=== PATIENT | female | born 1965 | race Caucasian/White ===

== ENCOUNTER 2019-08-29 13:18 | Emergency (ER) | payer MEDICAID ==
[~2019-08-29] VITALS: Ht 167.6 cm; Wt 100.4 kg
[2019-08-29 13:49] LABS: CLARITY,URINE CLEAR (Clear); COLOR,URINE YELLOW (Yellow); GLUCOSE, URINE 250 mg/dl (Neg); KETONES,URINE NEGATIVE (Neg); LEUKOCYTE ESTERASE ,URINE NEGATIVE (Neg); NITRITES, URINE NEGATIVE (Neg); OCCULT BLOOD,URINE MODERATE (Neg); PROTEIN,URINE >=300 mg/dl (Neg); UROBILINOGEN,URINE 0.2 E.U/dL (0.2-1.0)
[2019-08-29 13:50] LABS: URINE HCG NEGATIVE (NEG)
[2019-08-29 13:57] LABS: UA COLLECTION TYPE CLN CATCH MIDSTREAM
[2019-08-29 14:00] LABS: SQUAMOUS EPITHELIAL CELL,UR MANY /LPF (FEW)
[2019-08-29 14:01] LABS: BACTERIA,URINE 2+ /HPF (Neg); FINE GRANULAR CAST 0-3 /LPF (NEGATIVE); HYALINE CASTS 0-3 /LPF (NEGATIVE); RBC,URINE 0-2 /HPF (0-2)
[2019-08-29 14:03] LABS: WBC,URINE 0-4 /HPF (0-4)
--- NOTE | 2019-08-29 15:11 | NUR ---
pt ambulated independently to the toilet
[2019-08-29 15:13] LABS: BASOPHILS # (AUTO) 0.1 X10'3 (0-0.2); EOSINOPHILS # (AUTO) 0.3 X10'3 (0-0.9); HEMATOCRIT 35.1 % (35.0-45.0); HEMOGLOBIN 11.8 g/dl (12.0-16.0); LYMPHOCYTES # (AUTO) 1.4 X10'3 (1.1-4.8); LYMPHOCYTES % (AUTO) 16.7 % (21-51); MEAN CORPUSCULAR HEMOGLOBIN 31.9 PG (27.0-31.0); MEAN CORPUSCULAR HGB CONC 33.5 g/dL (33.0-36.5); MEAN CORPUSCULAR VOLUME 95.2 FL (78-98); MEAN PLATELET VOLUME 7.3 FL (7.4-10.4); MONOCYTES # (AUTO) 0.5 X10'3 (0-0.9); MONOCYTES % (AUTO) 5.3 % (2-12); NEUTROPHILS # (AUTO) 6.4 X10'3 (1.8-7.7); PLATELET COUNT 253 X10'3 (140-440); RED BLOOD COUNT 3.69 X10'6 (4.20-5.60); RED CELL DISTRIBUTION WIDTH 14.1 % (11.5-14.5); WHITE BLOOD COUNT 8.6 X10'3 (4.5-11.0)
[2019-08-29 15:29] LABS: ALANINE AMINOTRANSFERASE 16 U/L (12-78); ALBUMIN 2.2 G/DL (3.4-5.0); ALBUMIN/GLOBULIN RATIO 0.5 (1.1-1.5); ALKALINE PHOSPHATASE 70 IU/L (46-116); ANION GAP 5 (8-16); ASPARTATE AMINO TRANSFERASE 17 U/L (10-37); BILIRUBIN,TOTAL 0.2 MG/DL (0.1-1.0); BLOOD UREA NITROGEN 26 MG/DL (7-18); BUN/CREATININE RATIO 6.9 (6.6-38.0); CALCIUM 8.2 MG/DL (8.5-10.1); CHLORIDE 111 MMOL/L (99-107); CREATININE 3.78 MG/DL (0.40-0.90); GLUCOSE 178 MG/DL (70-104); LIPASE 135 U/L (73-393); POTASSIUM 4.6 MMOL/L (3.5-5.1); SODIUM 139 MMOL/L (135-145); TOTAL CARBON DIOXIDE 23.2 MMOL/L (24-32); TOTAL PROTEIN 6.3 G/DL (6.4-8.2); eGFR 13 ML/MIN
[2019-08-29] MEDS ORDERED: HYDROcodone/acetaminophen 10/325mg tab PO ONE (15:40)
[2019-08-29 16:19] VITALS: BP 152/87
== END 2019-08-29 16:16 | disposition home or self-care (01) ==
LOC: ER 13:18
DX: I12.9 Hypertensive chronic kidney disease with stage 1 through stage 4 chronic kidney disease, or unspecified chronic kidney disease (principal); E11.22 Type 2 diabetes mellitus with diabetic chronic kidney disease; N18.9 Chronic kidney disease, unspecified; E78.00 Pure hypercholesterolemia, unspecified; F17.200 Nicotine dependence, unspecified, uncomplicated
CPT/HCPCS: 36415; 80053; 81001; 81025; 82948; 83690; 85025; 99283

== ENCOUNTER 2020-03-14 12:50 | Emergency (ER) | payer MEDICAID ==
[~2020-03-14] VITALS: Ht 167.6 cm; Wt 104.5 kg
[2020-03-14 14:09] LABS: BASOPHILS # (AUTO) 0.1 X10'3 (0-0.2); BASOPHILS % (AUTO) 0.9 % (0-1); EOSINOPHILS # (AUTO) 0.3 X10'3 (0-0.9); EOSINOPHILS % (AUTO) 3.1 % (0-6); LYMPHOCYTES # (AUTO) 1.2 X10'3 (1.1-4.8); LYMPHOCYTES % (AUTO) 11.7 % (21-51); MEAN CORPUSCULAR HEMOGLOBIN 31.4 PG (27.0-31.0); MEAN CORPUSCULAR HGB CONC 33.2 g/dL (33.0-36.5); MEAN CORPUSCULAR VOLUME 94.4 FL (78-98); MEAN PLATELET VOLUME 7.4 FL (7.4-10.4); MONOCYTES # (AUTO) 0.5 X10'3 (0-0.9); MONOCYTES % (AUTO) 4.9 % (2-12); NEUTROPHILS # (AUTO) 8.3 X10'3 (1.8-7.7); NEUTROPHILS % (AUTO) 79.4 % (42-75); PLATELET COUNT 267 X10'3 (140-440); RED BLOOD COUNT 3.49 X10'6 (4.20-5.60); RED CELL DISTRIBUTION WIDTH 13.8 % (11.5-14.5); WHITE BLOOD COUNT 10.5 X10'3 (4.5-11.0)
[2020-03-14 14:19] LABS: URINE HCG NEGATIVE (NEG)
[2020-03-14 14:22] LABS: CLARITY,URINE CLOUDY (Clear); COLOR,URINE YELLOW (Yellow); GLUCOSE, URINE 500 mg/dl (Neg); KETONES,URINE NEGATIVE (Neg); LEUKOCYTE ESTERASE ,URINE NEGATIVE (Neg); NITRITES, URINE NEGATIVE (Neg); OCCULT BLOOD,URINE MODERATE (Neg); PH,URINE 6.5 (4.8-8.0); PROTEIN,URINE >=300 mg/dl (Neg); UA COLLECTION TYPE CLN CATCH MIDSTREAM; UROBILINOGEN,URINE 0.2 E.U/dL (0.2-1.0)
[2020-03-14 14:24] LABS: ALANINE AMINOTRANSFERASE 17 U/L (12-78); ALBUMIN 2.3 G/DL (3.4-5.0); ALBUMIN/GLOBULIN RATIO 0.5 (1.1-1.5); ALKALINE PHOSPHATASE 94 IU/L (46-116); ANION GAP 10 (8-16); ASPARTATE AMINO TRANSFERASE 12 U/L (10-37); BILIRUBIN,TOTAL 0.2 MG/DL (0.1-1.0); BLOOD UREA NITROGEN 35 MG/DL (7-18); BUN/CREATININE RATIO 6.9 (6.6-38.0); CALCIUM 8.2 MG/DL (8.5-10.1); CHLORIDE 108 MMOL/L (99-107); CREATININE 5.05 MG/DL (0.40-0.90); GLUCOSE 218 MG/DL (70-104); LIPASE 142 U/L (73-393); POTASSIUM 4.8 MMOL/L (3.5-5.1); SODIUM 141 MMOL/L (135-145); TOTAL CARBON DIOXIDE 23.5 MMOL/L (24-32); TOTAL PROTEIN 6.8 G/DL (6.4-8.2); eGFR 9 ML/MIN
[2020-03-14 14:28] LABS: SQUAMOUS EPITHELIAL CELL,UR MANY /LPF (FEW)
[2020-03-14 14:30] LABS: BACTERIA,URINE 4+ /HPF (Neg); CELLULAR CAST 0-4 /LPF (NEGATIVE); COARSE GRANULAR CAST 0-3 /LPF (NEGATIVE); FINE GRANULAR CAST 0-3 /LPF (NEGATIVE); HYALINE CASTS 0-3 /LPF (NEGATIVE); RBC,URINE 0-2 /HPF (0-2); TRANSITIONAL EPI CELLS,URINE FEW /HPF; WBC,URINE 0-4 /HPF (0-4)
[2020-03-14 17:18] VITALS: BP 159/99
== END 2020-03-14 18:12 | disposition home or self-care (01) ==
LOC: ER 12:51
DX: I12.9 Hypertensive chronic kidney disease with stage 1 through stage 4 chronic kidney disease, or unspecified chronic kidney disease (principal); E11.22 Type 2 diabetes mellitus with diabetic chronic kidney disease; N18.9 Chronic kidney disease, unspecified; M54.5 Low back pain; M79.89 Other specified soft tissue disorders; E78.00 Pure hypercholesterolemia, unspecified; F17.200 Nicotine dependence, unspecified, uncomplicated
CPT/HCPCS: 36415; 80053; 81001; 81025; 83690; 85025; 93971; 99284

== ENCOUNTER 2020-05-02 12:19 | Emergency (ER) | payer MEDICAID ==
[~2020-05-02] VITALS: Ht 172.7 cm; Wt 99.0 kg
[2020-05-02 13:20] LABS: CLARITY,URINE CLOUDY (Clear); COLOR,URINE YELLOW (Yellow); GLUCOSE, URINE 100 mg/dl (Neg); KETONES,URINE NEGATIVE (Neg); LEUKOCYTE ESTERASE ,URINE NEGATIVE (Neg); NITRITES, URINE NEGATIVE (Neg); OCCULT BLOOD,URINE SMALL (Neg); PH,URINE 6.5 (4.8-8.0); PROTEIN,URINE >=300 mg/dl (Neg); UA COLLECTION TYPE CLN CATCH MIDSTREAM; UROBILINOGEN,URINE 0.2 E.U/dL (0.2-1.0)
[2020-05-02 13:27] LABS: SQUAMOUS EPITHELIAL CELL,UR MANY /LPF (FEW)
[2020-05-02 13:34] LABS: WBC,URINE 0-4 /HPF (0-4)
[2020-05-02 13:35] LABS: BACTERIA,URINE 2+ /HPF (Neg); COARSE GRANULAR CAST 0-3 /LPF (NEGATIVE); FINE GRANULAR CAST 0-3 /LPF (NEGATIVE); HYALINE CASTS 0-3 /LPF (NEGATIVE)
[2020-05-02 14:21] LABS: BASOPHILS # (AUTO) 0.1 X10'3 (0-0.2); BASOPHILS % (AUTO) 0.9 % (0-1); EOSINOPHILS # (AUTO) 0.4 X10'3 (0-0.9); EOSINOPHILS % (AUTO) 4.3 % (0-6); HEMOGLOBIN 10.2 g/dl (12.0-16.0); LYMPHOCYTES % (AUTO) 22.1 % (21-51); MEAN CORPUSCULAR HGB CONC 32.8 g/dL (33.0-36.5); MEAN CORPUSCULAR VOLUME 94.4 FL (78-98); MEAN PLATELET VOLUME 7.5 FL (7.4-10.4); MONOCYTES # (AUTO) 0.6 X10'3 (0-0.9); MONOCYTES % (AUTO) 6.6 % (2-12); NEUTROPHILS # (AUTO) 5.9 X10'3 (1.8-7.7); NEUTROPHILS % (AUTO) 66.1 % (42-75); PLATELET COUNT 278 X10'3 (140-440); RED BLOOD COUNT 3.29 X10'6 (4.20-5.60); RED CELL DISTRIBUTION WIDTH 13.7 % (11.5-14.5); WHITE BLOOD COUNT 8.9 X10'3 (4.5-11.0)
[2020-05-02 14:34] LABS: GLUCOSE 118 MG/DL (70-104); POTASSIUM 5.9 MMOL/L (3.5-5.1); SODIUM 140 MMOL/L (135-145)
[2020-05-02 14:35] LABS: ALANINE AMINOTRANSFERASE 26 U/L (12-78); ALBUMIN/GLOBULIN RATIO 0.4 (1.1-1.5); ALKALINE PHOSPHATASE 99 IU/L (46-116); ANION GAP 9 (8-16); ASPARTATE AMINO TRANSFERASE 26 U/L (10-37); BILIRUBIN,TOTAL 0.2 MG/DL (0.1-1.0); BLOOD UREA NITROGEN 42 MG/DL (7-18); BUN/CREATININE RATIO 8.6 (6.6-38.0); CALCIUM 7.9 MG/DL (8.5-10.1); CHLORIDE 107 MMOL/L (99-107); CREATININE 4.88 MG/DL (0.40-0.90); TOTAL CARBON DIOXIDE 24.2 MMOL/L (24-32); TOTAL PROTEIN 6.7 G/DL (6.4-8.2); eGFR 9 ML/MIN
[2020-05-02] MEDS ORDERED: normal saline 1000ml 1,000 ML IV ONE (14:45)
[2020-05-02 16:17] VITALS: BP 139/79
== END 2020-05-02 16:18 | disposition home or self-care (01) ==
LOC: ER 12:19
DX: E87.5 Hyperkalemia (principal); I12.9 Hypertensive chronic kidney disease with stage 1 through stage 4 chronic kidney disease, or unspecified chronic kidney disease; E11.22 Type 2 diabetes mellitus with diabetic chronic kidney disease; N18.9 Chronic kidney disease, unspecified; N17.9 Acute kidney failure, unspecified; E78.00 Pure hypercholesterolemia, unspecified; J45.909 Unspecified asthma, uncomplicated; F17.200 Nicotine dependence, unspecified, uncomplicated
CPT/HCPCS: 36415; 80053; 81001; 85025; 99285; J7030

== ENCOUNTER 2020-11-11 11:43 | Day surgery (SDC) | payer MEDICAID ==
[~2020-11-11] VITALS: Ht 165.1 cm; Wt 84.3 kg
[2020-11-11] MEDS ORDERED: normal saline 1000ml 1,000 ML IV SCH (11:45)
[2020-11-11] MEDS ORDERED: METO100T7 PO (12:12)
[2020-11-11] MEDS ORDERED: HYDROCODONE (12:12)
[2020-11-11] MEDS ORDERED: GABA300C PO (12:12)
[2020-11-11] MEDS ORDERED: ALBU18HF2 INH (12:12)
[2020-11-11] MEDS ORDERED: FLUO20CA39 PO (12:12)
[2020-11-11] MEDS ORDERED: TRAZ-251 PO (12:12)
[2020-11-11] MEDS ORDERED: LANTUS SQ (12:12)
[2020-11-11] MEDS ORDERED: VENL150C2 PO (12:12)
[2020-11-11] MEDS ORDERED: ZOLP10TA PO (12:12)
[2020-11-11] MEDS ORDERED: OMEG-79 PO (12:12)
[2020-11-11] MEDS ORDERED: SEVE800T8 PO (12:12)
[2020-11-11] MEDS ORDERED: AMLO5TAB4 PO (12:12)
[2020-11-11 12:43] VITALS: BP 149/70
[2020-11-11 12:44] VITALS: BP 149/70
[2020-11-11 12:44] LABS: BASOPHILS # (AUTO) 0.1 X10'3 (0-0.2); BASOPHILS % (AUTO) 1.1 % (0-1); EOSINOPHILS # (AUTO) 0.2 X10'3 (0-0.9); EOSINOPHILS % (AUTO) 2.8 % (0-6); HEMATOCRIT 30.4 % (35.0-45.0); HEMOGLOBIN 10.1 g/dl (12.0-16.0); LYMPHOCYTES # (AUTO) 1.4 X10'3 (1.1-4.8); LYMPHOCYTES % (AUTO) 18.3 % (21-51); MEAN CORPUSCULAR HEMOGLOBIN 31.5 PG (27.0-31.0); MEAN CORPUSCULAR HGB CONC 33.1 g/dL (33.0-36.5); MEAN PLATELET VOLUME 7.6 FL (7.4-10.4); MONOCYTES # (AUTO) 0.6 X10'3 (0-0.9); MONOCYTES % (AUTO) 7.3 % (2-12); NEUTROPHILS # (AUTO) 5.5 X10'3 (1.8-7.7); NEUTROPHILS % (AUTO) 70.5 % (42-75); PLATELET COUNT 261 X10'3 (140-440); RED BLOOD COUNT 3.19 X10'6 (4.20-5.60); RED CELL DISTRIBUTION WIDTH 14.8 % (11.5-14.5); WHITE BLOOD COUNT 7.8 X10'3 (4.5-11.0)
[2020-11-11] MEDS ORDERED: pneumococcal 23-VAL P-sac vacc 25 mcg/0.5ml vial IMVAC ONE (13:00)
[2020-11-11] MEDS ORDERED: midazolam 1 mg/ML 2ml injection ONE (13:20)
[2020-11-11] MEDS ORDERED: heparin 1,000unit/ml 10ml vial 10 ML ONE (13:20)
[2020-11-11] MEDS ORDERED: LIDOcaine 1%/PF 5ML 10 MG/ML VIAL ONE (13:20)
[2020-11-11] MEDS ORDERED: fentaNYL/PF 50MCG/1 ML 2ML syringe ONE (13:21)
[2020-11-11 14:45] VITALS: BP 143/89
[2020-11-11 15:00] VITALS: BP 143/79
[2020-11-11 15:15] VITALS: BP 148/85
[2020-11-11 15:45] VITALS: BP 144/84
== END 2020-11-11 15:50 | disposition home or self-care (01) ==
LOC: SSTAY O 11:43
PROVIDERS: ATTEND Radiology Diagnostic Radiology
DX: E11.22 Type 2 diabetes mellitus with diabetic chronic kidney disease (principal); I12.0 Hypertensive chronic kidney disease with stage 5 chronic kidney disease or end stage renal disease; N18.6 End stage renal disease; J44.9 Chronic obstructive pulmonary disease, unspecified; Z79.4 Long term (current) use of insulin; Z79.899 Other long term (current) drug therapy
CPT/HCPCS: 36415; 36558; 76937; 77001; 85025; 99152; 99153; C1750; C1769; C1894; J1644; J2250; J3010; J7030; A9270

== ENCOUNTER 2020-11-24 14:20 | Inpatient (IN) | payer MEDICAID ==
[~2020-11-24] VITALS: Ht 172.7 cm; Wt 84.1 kg
[~2020-11-24 14:20] MED LIST: ALBU18HF2 INH; AMLO5TAB4 PO; FLUO20CA39 PO; GABA300C PO; HYDROCODONE; LANTUS SQ; METO100T7 PO; OMEG-79 PO; SEVE800T8 PO; TRAZ-251 PO; VENL150C2 PO; ZOLP10TA PO
[2020-11-24 15:11] LABS: BASOPHILS # (AUTO) 0.1 X10'3 (0-0.2); BASOPHILS % (AUTO) 0.4 % (0-1); EOSINOPHILS % (AUTO) 0.2 % (0-6); HEMATOCRIT 29.1 % (35.0-45.0); HEMOGLOBIN 9.8 g/dl (12.0-16.0); LYMPHOCYTES # (AUTO) 1.1 X10'3 (1.1-4.8); LYMPHOCYTES % (AUTO) 6.5 % (21-51); MEAN CORPUSCULAR HEMOGLOBIN 30.7 PG (27.0-31.0); MEAN CORPUSCULAR HGB CONC 33.7 g/dL (33.0-36.5); MEAN CORPUSCULAR VOLUME 91.1 FL (78-98); MONOCYTES # (AUTO) 0.7 X10'3 (0-0.9); MONOCYTES % (AUTO) 4.6 % (2-12); NEUTROPHILS # (AUTO) 14.4 X10'3 (1.8-7.7); NEUTROPHILS % (AUTO) 88.3 % (42-75); PLATELET COUNT 219 X10'3 (140-440); RED BLOOD COUNT 3.19 X10'6 (4.20-5.60); RED CELL DISTRIBUTION WIDTH 15.1 % (11.5-14.5); WHITE BLOOD COUNT 16.3 X10'3 (4.5-11.0)
[2020-11-24 15:26] LABS: ALANINE AMINOTRANSFERASE 77 U/L (12-78); ALBUMIN 1.5 G/DL (3.4-5.0); ALBUMIN/GLOBULIN RATIO 0.3 (1.1-1.5); ALKALINE PHOSPHATASE 396 IU/L (46-116); ANION GAP 13 (8-16); ASPARTATE AMINO TRANSFERASE 51 U/L (10-37); BILIRUBIN,TOTAL 0.8 MG/DL (0.1-1.0); BLOOD UREA NITROGEN 91 MG/DL (7-18); BUN/CREATININE RATIO 15.7 (6.6-38.0); CALCIUM 8.3 MG/DL (8.5-10.1); CHLORIDE 93 MMOL/L (99-107); GLUCOSE 206 MG/DL (70-104); SODIUM 124 MMOL/L (135-145); TOTAL CARBON DIOXIDE 17.7 MMOL/L (24-32); TOTAL PROTEIN 6.5 G/DL (6.4-8.2); eGFR 8 ML/MIN
[2020-11-24] MEDS ORDERED: normal saline 1000ML IV soln IVB ONE (16:45)
[2020-11-24 16:56] LABS: MAGNESIUM 2.3 MG/DL (1.5-2.4)
[2020-11-24] MEDS ORDERED: piperacillin/tazo 3.375gm/50ml 50 ML IV ONE (17:20)
[2020-11-24] MEDS ORDERED: vancomycin/NS 1 GM ADD-VANTAGE 250 ML IV ONE (17:20)
--- NOTE | 2020-11-24 17:30 | NUR ---
DIALYSIS CATH CLEANED AND DRESSED
[2020-11-24 17:49] LABS: CLARITY,URINE SLIGHTLY CLOUDY (Clear); COLOR,URINE YELLOW (Yellow); GLUCOSE, URINE 250 mg/dl (Neg); KETONES,URINE TRACE mg/dl (Neg); LEUKOCYTE ESTERASE ,URINE NEGATIVE (Neg); NITRITES, URINE NEGATIVE (Neg); OCCULT BLOOD,URINE MODERATE (Neg); PROTEIN,URINE >=300 mg/dl (Neg)
[2020-11-24 17:50] LABS: UA COLLECTION TYPE CLN CATCH MIDSTREAM
[2020-11-24 17:58] LABS: COARSE GRANULAR CAST 0-3 /LPF (NEGATIVE)
[2020-11-24 18:00] LABS: BACTERIA,URINE 1+ /HPF (Neg); SQUAMOUS EPITHELIAL CELL,UR MANY /LPF (FEW); WBC,URINE 0-4 /HPF (0-4)
--- NOTE | 2020-11-24 18:13 | NUR ---
PT TO CT
[2020-11-24] MEDS ORDERED: acetaminophen 650mg rectal suppository RC PRN (19:35)
[2020-11-24] MEDS ORDERED: magnesium hydroxide 30ml (MOM) UD suspension PO PRN (19:35)
[2020-11-24] MEDS ORDERED: HYDROmorphone inj. 0.5 MG/0.5 ML DISP.SYRIN IV PRN (19:35)
[2020-11-24] MEDS ORDERED: diphenhydrAMINE 50 mg/ml inj IV PRN (19:35)
[2020-11-24] MEDS ORDERED: HYDROcodone/acetaminophen 5mg/325mg tablet PO PRN (19:35)
[2020-11-24] MEDS ORDERED: bisacodyl 10mg suppository rectal RC PRN (19:35)
[2020-11-24] MEDS ORDERED: acetaminophen 325mg tablet PO PRN ×2 (19:35)
[2020-11-24] MEDS ORDERED: ondansetron/PF 4mg/2ml inj IV PRN (19:35)
[2020-11-24] MEDS ORDERED: diphenhydrAMINE 25mg capsule PO PRN (19:35)
[2020-11-24] MEDS ORDERED: mag hydrox/Alum hydrox/simeth 30ml oral suspension PO PRN (19:35)
[2020-11-24] MEDS ORDERED: ondansetron 4mg rapidly disintigrating tab PO PRN (19:35)
[2020-11-24] MEDS ORDERED: MESSAGE TO PHARMACY PO ONE (19:45)
[2020-11-24] MEDS ORDERED: dextrose 50%-water 50ml dispensing syringe IV PRN ×2 (19:45)
[2020-11-24] MEDS ORDERED: glucagon, human recombinant 1mg kit SUBCUT PRN (19:45)
[2020-11-24] MEDS ORDERED: dextrose ORAL solution 15 GM/59 ML bottle PO PRN ×2 (19:45)
[2020-11-24] MEDS ORDERED: insulin Lispro (HumaLOG) vial - multi-dose SQ SCH (19:45)
[2020-11-24] MEDS ORDERED: ipratropium/albuterol 3ml nebule NEB SCH (20:00)
[2020-11-24] MEDS ORDERED: zolpidem 5mg tablet PO PRN (20:05)
[2020-11-24] MEDS: CefTRIAXone/D5W-Rocephin 1gm 50 ML IV SCH (20:34)
[2020-11-24] MEDS ORDERED: ipratropium/albuterol 3ml nebule NEB PRN (20:35)
[2020-11-24] MEDS: docusate sod 100mg capsule PO SCH (20:35)
[2020-11-24] MEDS: normal saline 1000ml 1,000 ML IV SCH (20:36)
[2020-11-24] MEDS: ipratropium/albuterol 3ml nebule NEB SCH (20:43)
[2020-11-24] MEDS: morphine 2 MG/ML inj. syringe IV PRN (20:45)
[2020-11-24] MEDS: heparin, porcine 5000 units/ml vial SQ SCH (20:49)
[2020-11-24] MEDS ORDERED: nicotine 21mg patch - 24 hr TD SCH (21:00)
[2020-11-24] MEDS ORDERED: nicotine 21mg patch - 24 hr TD ONE (21:00)
[2020-11-24] MEDS ORDERED: temazepam 15mg capsule PO PRN (21:00)
[2020-11-24] MEDS: traZODone 50mg tablet PO SCH (21:02)
[2020-11-24 21:15] LABS: PARTIAL THROMBOPLASTIN TIME 31 SECONDS (22-32)
[2020-11-24 21:16] LABS: HEMOGLOBIN A1C 6.4 % (4.5-6.2)
[2020-11-24 21:25] LABS: CREATINE KINASE 31 U/L (26-192); LIPASE 161 U/L (73-393); PHOSPHORUS 5.4 MG/DL (2.3-4.5)
[2020-11-24] MEDS: azithromycin/NS 500mg/250ml 250 ML IV SCH (21:50)
[2020-11-24] MEDS: insulin glargine (Lantus) pen - multi-dose SQ SCH (22:02)
[2020-11-24 23:04] LABS: URINE AMPHETAMINE SCREEN NEGATIVE (Neg); URINE BARBITUATE SCREEN NEGATIVE (Neg); URINE BENZODIAZEPINES SCREEN NEGATIVE (Neg); URINE CANNABINOID SCREEN NEGATIVE (Neg); URINE COCAINE SCREEN NEGATIVE (Neg); URINE METHADONE SCREEN NEGATIVE (Neg); URINE OPIATE SCREEN POSITIVE (Neg); URINE PHENCYCLIDINE SCREEN NEGATIVE (Neg)
[2020-11-25] MEDS: gabapentin 300mg capsule PO SCH ×2 (00:28→09:36)
[2020-11-25 03:51] LABS: BASOPHILS # (AUTO) 0.1 X10'3 (0-0.2); BASOPHILS % (AUTO) 0.3 % (0-1); EOSINOPHILS # (AUTO) 0.1 X10'3 (0-0.9); EOSINOPHILS % (AUTO) 0.3 % (0-6); HEMATOCRIT 25.3 % (35.0-45.0); HEMOGLOBIN 8.4 g/dl (12.0-16.0); LYMPHOCYTES # (AUTO) 1.4 X10'3 (1.1-4.8); LYMPHOCYTES % (AUTO) 8.4 % (21-51); MEAN CORPUSCULAR HEMOGLOBIN 30.6 PG (27.0-31.0); MEAN CORPUSCULAR HGB CONC 33.1 g/dL (33.0-36.5); MEAN CORPUSCULAR VOLUME 92.5 FL (78-98); MONOCYTES # (AUTO) 0.9 X10'3 (0-0.9); MONOCYTES % (AUTO) 5.5 % (2-12); NEUTROPHILS # (AUTO) 14.4 X10'3 (1.8-7.7); NEUTROPHILS % (AUTO) 85.5 % (42-75); PLATELET COUNT 244 X10'3 (140-440); RED BLOOD COUNT 2.74 X10'6 (4.20-5.60); WHITE BLOOD COUNT 16.8 X10'3 (4.5-11.0)
[2020-11-25 03:56] LABS: ALANINE AMINOTRANSFERASE 66 U/L (12-78); ALBUMIN 1.3 G/DL (3.4-5.0); ALBUMIN/GLOBULIN RATIO 0.3 (1.1-1.5); ALKALINE PHOSPHATASE 416 IU/L (46-116); ANION GAP 11 (8-16); ASPARTATE AMINO TRANSFERASE 39 U/L (10-37); BILIRUBIN,TOTAL 0.6 MG/DL (0.1-1.0); BLOOD UREA NITROGEN 88 MG/DL (7-18); BUN/CREATININE RATIO 15.6 (6.6-38.0); CALCIUM 7.8 MG/DL (8.5-10.1); CHLORIDE 95 MMOL/L (99-107); CREATININE 5.65 MG/DL (0.40-0.90); GLUCOSE 168 MG/DL (70-104); POTASSIUM 4.7 MMOL/L (3.5-5.1); SODIUM 126 MMOL/L (135-145); TOTAL CARBON DIOXIDE 19.8 MMOL/L (24-32); TOTAL PROTEIN 6.1 G/DL (6.4-8.2); eGFR 8 ML/MIN
[2020-11-25 03:59] LABS: CHOL/HDL RATIO 17.3 (0.00-4.99); CHOLESTEROL 208 MG/DL (0-200); HDL CHOLESTEROL 12 MG/DL (35-60); LDL CHOLESTEROL 74 MG/DL (50-100); TRIGLYCERIDES 428 MG/DL (20-135)
[2020-11-25] MEDS: morphine 2 MG/ML inj. syringe IV PRN ×2 (07:28→20:09)
--- NOTE | 2020-11-25 07:36 | NUR ---
RN called foor to give report, RN was told that Gabrielle RN was getting the patient but that RN was not available to take report. Charge was not available to take report. RN will attempt to call report in 10 -15 min.
--- NOTE | 2020-11-25 07:53 | NUR ---
Patient in room ED 1. I have received report from DANII AYALA and had the opportunity to ask questions and assume patient care.
[2020-11-25] MEDS: docusate sod 100mg capsule PO SCH ×2 (08:00→20:10)
[2020-11-25] MEDS: nitroGLYCERIN 0.4mg/hour patch TD SCH (08:00)
[2020-11-25 08:26] VITALS: BP 157/85
--- NOTE | 2020-11-25 08:31 | NUR ---
Received pt from ED, VSS stable, appears very relaxed after receiving morphine in ED, states pain is 9/10 although pt relaxing comfortably. Will continue to monitor.
[2020-11-25] MEDS: ipratropium/albuterol 3ml nebule NEB SCH ×3 (08:52→21:14)
[2020-11-25] MEDS: OMEGA-3/DHA/EPA/FISH OIL 1 EACH CAPSULE.DR PO SCH (09:33)
[2020-11-25] MEDS: aspirin 325mg tablet, delayed-release (Ecotrin) PO SCH (09:35)
[2020-11-25] MEDS: pantoprazole 40mg Tablet.DR PO SCH (09:35)
[2020-11-25] MEDS: amLODIPine 5mg tablet PO SCH (09:36)
[2020-11-25] MEDS: FLUoxetine 20mg capsule PO SCH (09:36)
[2020-11-25] MEDS: venlafaxine XR 75mg capsule (Q24H) PO SCH (09:36)
[2020-11-25] MEDS: sevelamer carbonate 800mg tablet PO SCH ×4 (09:37→23:43)
[2020-11-25] MEDS: heparin, porcine 5000 units/ml vial SQ SCH ×2 (09:37→20:10)
[2020-11-25] MEDS: metoprolol succinate 25mg (24-HOUR) SR. Tablet PO SCH (09:37)
--- NOTE | 2020-11-25 09:40 | NUR ---
Per Pharmacist, okay to give 200mg metropolol to pt, as is her hime medication, despite such a higher dose than I've seen. Patient verbally confirmed that her home dose is 200mg daily. Will continue to monitor.
[2020-11-25] MEDS ORDERED: heparin 1,000unit/ml 10ml vial 10 ML IV ONE (10:25)
[2020-11-25] MEDS ORDERED: normal saline 1000ml 250 ML IV PRN (10:25)
[2020-11-25] MEDS ORDERED: EPOETIN ALFA-EPBX 20,000 UNIT/ML 1 ML MDV IV ONE (10:25)
[2020-11-25] MEDS ORDERED: heparin 1,000 units/ml 10ml inj HE ONE ×2 (10:30)
[2020-11-25 11:00] VITALS: BP 142/76
[2020-11-25] MEDS: CefTRIAXone/D5W-Rocephin 1gm 50 ML IV SCH (11:11)
[2020-11-25] MEDS ORDERED: tPA-cathflo 2 MG/2 ml IV flush IVF ONE ×2 (12:30)
[2020-11-25 15:00] VITALS: BP 126/85
--- NOTE | 2020-11-25 18:44 | NUR ---
Problems reprioritized. Patient report given, questions answered & plan of care reviewed with Prabhakar AYALA.
[2020-11-25 18:50] VITALS: BP 157/84
[2020-11-25] MEDS: traZODone 50mg tablet PO SCH (20:09)
[2020-11-25] MEDS: lactobacillus rhamnosus 10,000 MMU CELLS/CAPSULE PO SCH (20:09)
[2020-11-25] MEDS: azithromycin/NS 500mg/250ml 250 ML IV SCH (20:13)
[2020-11-25] MEDS: HYDROcodone/acetaminophen 10/325mg tab PO PRN (23:33)
[2020-11-25] MEDS: insulin glargine (Lantus) pen - multi-dose SQ SCH (23:42)
[2020-11-26 06:12] LABS: BASOPHILS # (AUTO) 0.1 X10'3 (0-0.2); BASOPHILS % (AUTO) 0.4 % (0-1); EOSINOPHILS # (AUTO) 0.1 X10'3 (0-0.9); EOSINOPHILS % (AUTO) 0.3 % (0-6); HEMATOCRIT 22.1 % (35.0-45.0); HEMOGLOBIN 7.3 g/dl (12.0-16.0); LYMPHOCYTES # (AUTO) 1.7 X10'3 (1.1-4.8); LYMPHOCYTES % (AUTO) 9.7 % (21-51); MEAN CORPUSCULAR HEMOGLOBIN 30.5 PG (27.0-31.0); MEAN CORPUSCULAR HGB CONC 33.2 g/dL (33.0-36.5); MEAN CORPUSCULAR VOLUME 91.9 FL (78-98); MEAN PLATELET VOLUME 8.5 FL (7.4-10.4); MONOCYTES # (AUTO) 1.4 X10'3 (0-0.9); MONOCYTES % (AUTO) 8.4 % (2-12); NEUTROPHILS # (AUTO) 13.9 X10'3 (1.8-7.7); NEUTROPHILS % (AUTO) 81.2 % (42-75); PLATELET COUNT 182 X10'3 (140-440); RED CELL DISTRIBUTION WIDTH 15.2 % (11.5-14.5); WHITE BLOOD COUNT 17.2 X10'3 (4.5-11.0)
--- NOTE | 2020-11-26 06:23 | NUR ---
Problems reprioritized. Patient report given, questions answered & plan of care reviewed with Briana. Addendum: 11/26/20 at 0623 by Dustin Norton RN Amended: Links added.
[2020-11-26 06:35] LABS: ALANINE AMINOTRANSFERASE 44 U/L (12-78); ALBUMIN 1.2 G/DL (3.4-5.0); ALBUMIN/GLOBULIN RATIO 0.3 (1.1-1.5); ALKALINE PHOSPHATASE 325 IU/L (46-116); ANION GAP 12 (8-16); ASPARTATE AMINO TRANSFERASE 23 U/L (10-37); BILIRUBIN,TOTAL 0.4 MG/DL (0.1-1.0); BLOOD UREA NITROGEN 74 MG/DL (7-18); BUN/CREATININE RATIO 14.2 (6.6-38.0); CALCIUM 7.5 MG/DL (8.5-10.1); CHLORIDE 99 MMOL/L (99-107); CREATININE 5.21 MG/DL (0.40-0.90); GLUCOSE 127 MG/DL (70-104); POTASSIUM 4.6 MMOL/L (3.5-5.1); SODIUM 131 MMOL/L (135-145); TOTAL CARBON DIOXIDE 20.5 MMOL/L (24-32); TOTAL PROTEIN 5.6 G/DL (6.4-8.2); eGFR 9 ML/MIN
--- NOTE | 2020-11-26 06:38 | NUR ---
Patient in room PCU 3014. I have received report from CHELSY AYALA and had the opportunity to ask questions and assume patient care.
--- NOTE | 2020-11-26 06:43 | NUR ---
Per NOC RN, pt pulled out right chest TDC during the night. Site noted to be CDI with dressing placed.
[2020-11-26 07:00] VITALS: BP 125/72
[2020-11-26] MEDS ORDERED: vancomycin/NS 1 GM ADD-VANTAGE 250 ML IV PRN (07:40)
[2020-11-26] MEDS ORDERED: vancomycin/NS 1 GM ADD-VANTAGE 250 ML IV ONE (07:40)
--- NOTE | 2020-11-26 07:40 | NUR ---
page to Yordan regarding TDC pulled out PAGER ID: [phone] MESSAGE: pt Jessica Ribeiroarslan [id number] pulled out TDC last night, needs new access for HD today. Briana loza [facility] [phone]
[2020-11-26] MEDS ORDERED: normal saline 1000ml 250 ML IV PRN (08:00)
[2020-11-26] MEDS ORDERED: heparin 1,000unit/ml 10ml vial 10 ML IV ONE (08:00)
[2020-11-26] MEDS ORDERED: EPOETIN ALFA-EPBX 20,000 UNIT/ML 1 ML MDV IV ONE (08:00)
[2020-11-26] MEDS ORDERED: heparin 1,000 units/ml 10ml inj HE ONE ×2 (08:00)
[2020-11-26] MEDS: nitroGLYCERIN 0.4mg/hour patch TD SCH (08:00)
[2020-11-26] MEDS: CefTRIAXone/D5W-Rocephin 1gm 50 ML IV SCH (08:33)
[2020-11-26] MEDS: HYDROcodone/acetaminophen 10/325mg tab PO PRN ×3 (08:35→23:34)
[2020-11-26] MEDS: venlafaxine XR 75mg capsule (Q24H) PO SCH (08:36)
[2020-11-26] MEDS: heparin, porcine 5000 units/ml vial SQ SCH ×2 (08:36→21:35)
[2020-11-26] MEDS: lactobacillus rhamnosus 10,000 MMU CELLS/CAPSULE PO SCH ×2 (08:36→21:34)
[2020-11-26] MEDS: metoprolol succinate 25mg (24-HOUR) SR. Tablet PO SCH (08:36)
[2020-11-26] MEDS: OMEGA-3/DHA/EPA/FISH OIL 1 EACH CAPSULE.DR PO SCH (08:36)
[2020-11-26] MEDS: FLUoxetine 20mg capsule PO SCH (08:36)
[2020-11-26] MEDS: aspirin 325mg tablet, delayed-release (Ecotrin) PO SCH (08:37)
[2020-11-26] MEDS: docusate sod 100mg capsule PO SCH ×2 (08:37→21:34)
[2020-11-26] MEDS: sevelamer carbonate 800mg tablet PO SCH ×3 (08:37→20:07)
[2020-11-26] MEDS: amLODIPine 5mg tablet PO SCH (08:37)
[2020-11-26] MEDS: pantoprazole 40mg Tablet.DR PO SCH (08:38)
[2020-11-26] MEDS: ipratropium/albuterol 3ml nebule NEB SCH ×3 (09:23→20:21)
[2020-11-26] MEDS ORDERED: LIDOcaine 1%/PF 5ML 10 MG/ML VIAL ONE (11:26)
[2020-11-26] MEDS ORDERED: heparin 1,000unit/ml 10ml vial 10 ML ONE (11:31)
[2020-11-26] MEDS ORDERED: fentaNYL/PF 50MCG/1 ML 2ML syringe ONE (11:39)
--- NOTE | 2020-11-26 12:55 | NUR ---
PAGER ID: [phone] MESSAGE: DAMI ON [email or web address], PATIENT IN 3014B S/P FALL ON NOC NOW COMPLAING OF HEAD AND SHOULDER PAIN. DO YOU WANT A PICTURE OF EITHER OR BOTH??
--- NOTE | 2020-11-26 13:39 | NUR ---
PT REPORTS HAVING A FALL LAST NIGHT IN BATHROOM UNWITNESSED APPROXIMATELY 12:30 AM. STATES SHE WAS ON TOILET AND FELL FORWARD AND HIT LEFT SHOULDER ON SHOWER AREA. NO REDDNESS OR SWELLING ON LEFT SHOULDER OR ARM WHEN I EXAMINED HER. PER NOC RN, PT WAS FOUND IN BATHROOM SITTING ON FLOOR AND HAD TO BE ASSISTED UP, RN STATES PT DID NOT REPORT A FALL AT THAT TIME. LATER IN THE DAY PT REPORTS THAT SHE ACTUALLY ALSO HIT HER FOREHEAD DURING THAT FALL, IN FRONT OF DAMI CHARGE NURSE AND MYSELF. MADE AWARE BY PAGE, NO NEW ORDERS.
--- NOTE | 2020-11-26 14:29 | NUR ---
PER PT USUAL DOSE OF PROZAC IS 60 MG DAILY, DESPITE REPORTING 20 MG DAILY ON MED REC, NO EXTERNAL PHARMACY HISTORY AVAILABLE. MD MADE AWARE AND VERBAL ORDER TO INCREASE DAILY DOSE TO 60 MG WITH 40 MG ONE TIME NOW SINCE 20 MG WAS GIVEN THIS AM.
[2020-11-26] MEDS ORDERED: FLUoxetine 20mg capsule PO ONE (14:30)
[2020-11-26 15:00] VITALS: BP 131/74
[2020-11-26 15:49] LABS: HBSAG SCREEN Negative (Negative)
--- NOTE | 2020-11-26 18:45 | NUR ---
Patient in room PCU 3014. I have received report from Briana AYALA and had the opportunity to ask questions and assume patient care.
--- NOTE | 2020-11-26 18:50 | NUR ---
Problems reprioritized. Patient report given, questions answered & plan of care reviewed with ETTA AYALA.
[2020-11-26] MEDS: normal saline 1000ml 1,000 ML IV SCH (19:35)
[2020-11-26 19:55] VITALS: BP 143/89
--- NOTE | 2020-11-26 20:15 | NUR ---
Blood sugar is 136. Pt. just got tray as was having dialysis treatment.45
[2020-11-26] MEDS: insulin glargine (Lantus) pen - multi-dose SQ SCH (21:00)
[2020-11-26] MEDS: azithromycin/NS 500mg/250ml 250 ML IV SCH (21:35)
[2020-11-26] MEDS: traZODone 50mg tablet PO SCH (21:35)
[2020-11-26] MEDS: gabapentin 300mg capsule PO SCH (21:36)
[2020-11-26 23:30] VITALS: BP 151/76
[2020-11-27] MEDS: VANCOMYCIN LEVEL IV SCH (02:42)
[2020-11-27] MEDS: HYDROcodone/acetaminophen 10/325mg tab PO PRN ×2 (04:13→19:45)
[2020-11-27 04:15] VITALS: BP 147/81
--- NOTE | 2020-11-27 06:40 | NUR ---
Problems reprioritized. Patient report given, questions answered & plan of care reviewed with Arti AYALA and Rachel AYALA.
[2020-11-27 06:46] LABS: BASOPHILS # (AUTO) 0.1 X10'3 (0-0.2); BASOPHILS % (AUTO) 0.4 % (0-1); EOSINOPHILS # (AUTO) 0.1 X10'3 (0-0.9); EOSINOPHILS % (AUTO) 0.6 % (0-6); HEMATOCRIT 22.6 % (35.0-45.0); HEMOGLOBIN 7.4 g/dl (12.0-16.0); LYMPHOCYTES # (AUTO) 1.6 X10'3 (1.1-4.8); LYMPHOCYTES % (AUTO) 8.4 % (21-51); MEAN CORPUSCULAR HEMOGLOBIN 30.2 PG (27.0-31.0); MEAN CORPUSCULAR HGB CONC 32.9 g/dL (33.0-36.5); MEAN CORPUSCULAR VOLUME 91.9 FL (78-98); MEAN PLATELET VOLUME 8.4 FL (7.4-10.4); MONOCYTES # (AUTO) 1.5 X10'3 (0-0.9); MONOCYTES % (AUTO) 7.9 % (2-12); NEUTROPHILS # (AUTO) 15.6 X10'3 (1.8-7.7); NEUTROPHILS % (AUTO) 82.7 % (42-75); PLATELET COUNT 207 X10'3 (140-440); RED BLOOD COUNT 2.46 X10'6 (4.20-5.60); RED CELL DISTRIBUTION WIDTH 15.4 % (11.5-14.5); WHITE BLOOD COUNT 18.9 X10'3 (4.5-11.0)
--- NOTE | 2020-11-27 06:57 | NUR ---
Patient in room PCU 3014. I have received report from JAMIE Dumont and had the opportunity to ask questions and assume patient care.
--- NOTE | 2020-11-27 06:57 | NUR ---
Patient in room PCU 3014. I have received report from JAMIE Dumont and had the opportunity to ask questions and assume patient care.
[2020-11-27 06:58] LABS: ALANINE AMINOTRANSFERASE 38 U/L (12-78); ALBUMIN 1.2 G/DL (3.4-5.0); ALBUMIN/GLOBULIN RATIO 0.3 (1.1-1.5); ALKALINE PHOSPHATASE 403 IU/L (46-116); ANION GAP 10 (8-16); ASPARTATE AMINO TRANSFERASE 25 U/L (10-37); BILIRUBIN,TOTAL 0.4 MG/DL (0.1-1.0); BLOOD UREA NITROGEN 38 MG/DL (7-18); BUN/CREATININE RATIO 10.2 (6.6-38.0); CALCIUM 7.2 MG/DL (8.5-10.1); CHLORIDE 100 MMOL/L (99-107); CREATININE 3.71 MG/DL (0.40-0.90); GLUCOSE 129 MG/DL (70-104); POTASSIUM 3.9 MMOL/L (3.5-5.1); SODIUM 134 MMOL/L (135-145); TOTAL CARBON DIOXIDE 23.8 MMOL/L (24-32); VANCOMYCIN,TROUGH 17.4 UG/ML (6.0-14.0); eGFR 13 ML/MIN
[2020-11-27 07:00] VITALS: BP 171/94
[2020-11-27] MEDS: nitroGLYCERIN 0.4mg/hour patch TD SCH (08:00)
[2020-11-27] MEDS: pantoprazole 40mg Tablet.DR PO SCH (08:04)
[2020-11-27] MEDS: lactobacillus rhamnosus 10,000 MMU CELLS/CAPSULE PO SCH ×2 (08:04→23:14)
[2020-11-27] MEDS: sevelamer carbonate 800mg tablet PO SCH ×3 (08:05→19:46)
[2020-11-27] MEDS: FLUoxetine 20mg capsule PO SCH (08:05)
[2020-11-27] MEDS: OMEGA-3/DHA/EPA/FISH OIL 1 EACH CAPSULE.DR PO SCH (08:07)
[2020-11-27] MEDS: venlafaxine XR 75mg capsule (Q24H) PO SCH (08:08)
[2020-11-27] MEDS: metoprolol succinate 25mg (24-HOUR) SR. Tablet PO SCH (08:08)
[2020-11-27] MEDS: docusate sod 100mg capsule PO SCH ×2 (08:09→23:14)
[2020-11-27] MEDS: amLODIPine 5mg tablet PO SCH (08:09)
[2020-11-27] MEDS: aspirin 325mg tablet, delayed-release (Ecotrin) PO SCH (08:09)
[2020-11-27] MEDS: heparin, porcine 5000 units/ml vial SQ SCH ×2 (08:11→20:00)
[2020-11-27] MEDS: ceFAZolin/D5W- 1GM premix 50 ML IV SCH (08:42)
[2020-11-27] MEDS ORDERED: normal saline 1000ml 250 ML IV PRN (08:45)
[2020-11-27] MEDS: ipratropium/albuterol 3ml nebule NEB SCH ×3 (08:45→20:03)
[2020-11-27] MEDS ORDERED: EPOETIN ALFA-EPBX 20,000 UNIT/ML 1 ML MDV IV ONE (08:45)
[2020-11-27] MEDS ORDERED: heparin 1,000unit/ml 10ml vial 10 ML IV ONE (08:45)
[2020-11-27] MEDS ORDERED: heparin 1,000 units/ml 10ml inj HE ONE ×2 (08:50)
[2020-11-27 11:00] VITALS: BP_SYST 129; BP_SYST 134; BP_DIAS 75; BP_DIAS 76
--- NOTE | 2020-11-27 12:02 | NUR ---
Problems reprioritized. Patient report given, questions answered & plan of care reviewed with JAMIE Maldonado. Patient currently recieving dialysis at bedside will transfer patient to [address] once completed - JAMIE Maldonado aware.
[2020-11-27 12:09] VITALS: BP 129/75
[2020-11-27] MEDS: morphine 2 MG/ML inj. syringe IV PRN (12:54)
[2020-11-27 15:00] VITALS: BP 155/84
--- NOTE | 2020-11-27 17:35 | NUR ---
Pt completed dialysis. Pt transferred to Med/Surg [id number] per md orders. Wheeled pt to over, transferred with SB assist to bed. All belongings collected and sent with pt. All Pt needs met at this time.
--- NOTE | 2020-11-27 17:55 | NUR ---
Received from PCU, by wheelchair, [id number] , appears in no acute distress.
[2020-11-27 18:00] VITALS: BP_SYST 156; BP_SYST 176; BP_DIAS 76; BP_DIAS 90
--- NOTE | 2020-11-27 18:50 | NUR ---
Patient in room JIHAN 354. I have received report from Erica Berger and had the opportunity to ask questions and assume patient care.
--- NOTE | 2020-11-27 19:15 | NUR ---
Patient right arm and shoulder appears swollen and complain of pain on movement, patient claims she fell, but cannot state exactly when and where it happened. Message left to Dr garcia
[2020-11-27] MEDS ORDERED: acetaminophen 325mg tablet PO PRN (19:35)
[2020-11-27] MEDS: traZODone 50mg tablet PO SCH (23:14)
[2020-11-27] MEDS: gabapentin 300mg capsule PO SCH (23:14)
[2020-11-27] MEDS: insulin glargine (Lantus) pen - multi-dose SQ SCH (23:42)
[2020-11-28] VITALS: BP 137/98
[2020-11-28] MEDS: VANCOMYCIN LEVEL IV SCH (03:00)
--- NOTE | 2020-11-28 06:40 | NUR ---
Problems reprioritized. Patient report given, questions answered & plan of care reviewed with Aditi AYALA.
[2020-11-28 06:51] LABS: BASOPHILS # (AUTO) 0.1 X10'3 (0-0.2); BASOPHILS % (AUTO) 0.4 % (0-1); EOSINOPHILS # (AUTO) 0.1 X10'3 (0-0.9); EOSINOPHILS % (AUTO) 0.5 % (0-6); HEMATOCRIT 23.2 % (35.0-45.0); HEMOGLOBIN 7.7 g/dl (12.0-16.0); LYMPHOCYTES % (AUTO) 11.8 % (21-51); MEAN CORPUSCULAR HEMOGLOBIN 30.1 PG (27.0-31.0); MEAN CORPUSCULAR HGB CONC 33.2 g/dL (33.0-36.5); MEAN CORPUSCULAR VOLUME 90.7 FL (78-98); MEAN PLATELET VOLUME 8.2 FL (7.4-10.4); MONOCYTES # (AUTO) 1.1 X10'3 (0-0.9); MONOCYTES % (AUTO) 6.5 % (2-12); NEUTROPHILS # (AUTO) 13.7 X10'3 (1.8-7.7); NEUTROPHILS % (AUTO) 80.8 % (42-75); PLATELET COUNT 238 X10'3 (140-440); RED BLOOD COUNT 2.56 X10'6 (4.20-5.60); RED CELL DISTRIBUTION WIDTH 15.8 % (11.5-14.5)
[2020-11-28 07:00] VITALS: BP 159/84
[2020-11-28 07:11] LABS: ALANINE AMINOTRANSFERASE 35 U/L (12-78); ALBUMIN 1.3 G/DL (3.4-5.0); ALBUMIN/GLOBULIN RATIO 0.3 (1.1-1.5); ALKALINE PHOSPHATASE 389 IU/L (46-116); ANION GAP 8 (8-16); ASPARTATE AMINO TRANSFERASE 24 U/L (10-37); BILIRUBIN,TOTAL 0.4 MG/DL (0.1-1.0); BLOOD UREA NITROGEN 24 MG/DL (7-18); BUN/CREATININE RATIO 7.5 (6.6-38.0); CALCIUM 7.7 MG/DL (8.5-10.1); CHLORIDE 100 MMOL/L (99-107); CREATININE 3.22 MG/DL (0.40-0.90); GLUCOSE 135 MG/DL (70-104); POTASSIUM 3.9 MMOL/L (3.5-5.1); SODIUM 134 MMOL/L (135-145); TOTAL CARBON DIOXIDE 25.9 MMOL/L (24-32); TOTAL PROTEIN 6.4 G/DL (6.4-8.2); eGFR 15 ML/MIN
[2020-11-28] MEDS: OMEGA-3/DHA/EPA/FISH OIL 1 EACH CAPSULE.DR PO SCH (08:16)
[2020-11-28] MEDS: FLUoxetine 20mg capsule PO SCH (08:17)
[2020-11-28] MEDS: nitroGLYCERIN 0.4mg/hour patch TD SCH (08:17)
[2020-11-28] MEDS: sevelamer carbonate 800mg tablet PO SCH ×3 (08:18→18:07)
[2020-11-28] MEDS: venlafaxine XR 75mg capsule (Q24H) PO SCH (08:18)
[2020-11-28] MEDS: aspirin 325mg tablet, delayed-release (Ecotrin) PO SCH (08:18)
[2020-11-28] MEDS: docusate sod 100mg capsule PO SCH ×2 (08:18→21:06)
[2020-11-28] MEDS: pantoprazole 40mg Tablet.DR PO SCH (08:18)
[2020-11-28] MEDS: lactobacillus rhamnosus 10,000 MMU CELLS/CAPSULE PO SCH ×2 (08:18→21:06)
[2020-11-28] MEDS: amLODIPine 5mg tablet PO SCH (08:19)
[2020-11-28] MEDS: metoprolol succinate 25mg (24-HOUR) SR. Tablet PO SCH (08:20)
[2020-11-28] MEDS: heparin, porcine 5000 units/ml vial SQ SCH ×2 (08:21→21:08)
[2020-11-28] MEDS: ceFAZolin/D5W- 1GM premix 50 ML IV SCH (08:22)
[2020-11-28] MEDS: ipratropium/albuterol 3ml nebule NEB SCH ×4 (09:21→20:05)
[2020-11-28] MEDS: HYDROcodone/acetaminophen 10/325mg tab PO PRN ×3 (09:30→21:20)
--- NOTE | 2020-11-28 10:15 | NUR ---
Patient placed on flat position, Right IJ Anshu Catheter pulled out, pressure on site for 15 minutes, gauze and opsite dressing to site. No further signs of bleeding noted. Patient tolerated procedure well.
[2020-11-28 11:00] VITALS: BP 152/85
--- NOTE | 2020-11-28 13:20 | NUR ---
Initial: Pt admit for sepsis, PNA, and ESRD. TDC placed and pt started on dialysis this admit, currently receiving routine Phos binder. Pt on a renal diet with poor PO intake, averaging less than 25% PO intake since admit. Pt seen at bedside reports poor PO intake r/t frequent meal interruptions preventing her from being able to consume meals though reports she is hungry. Pt provided with alternative menu and educated on meal selection process. Food preferences were obtained and d/w dietary, pt requests no fish. Pt inquired about renal dialysis diet, RD informed pt that she will be seen by an output renal RD at dialysis center and provided verbal protein education. Will return to provide written materials. Noted pt with elevated TG of 428 mg/dL, will provide nutrition therapy education for hypertriglyceridemia as well. Pt denies food allergies, difficulty chewing/swallowing, or constipation/diarrhea. LBM 11/25, receiving routine bowel care. Will continue to follow closely. Recommendations: 1) Continue renal diet 2) Encourage PO intake; monitor need for ONS/additional protein 3) [place] food preferences: no fish 4) Continue routine Phos binder 5) Routine bowel care 6) Scaled weight this admit; scaled weights with dialysis thereafter Addendum: 11/28/20 at [address] Amended: Links added.
[2020-11-28] MEDS ORDERED: LIDOcaine 1%/PF 5ML 10 MG/ML VIAL ONE (13:51)
[2020-11-28] MEDS ORDERED: heparin 1,000unit/ml 10ml vial 10 ML ONE (13:51)
[2020-11-28] MEDS ORDERED: midazolam 1 mg/ML 2ml injection ONE (13:51)
[2020-11-28] MEDS ORDERED: fentaNYL/PF 50MCG/1 ML 2ML syringe ONE (13:51)
--- NOTE | 2020-11-28 13:53 | NUR ---
Dr Barbra nix. asked CM be notified to assess/assist w/ adequate help at home. Angio will take pt for placement of tunneled catheter this afternoon. Prevention Specialist paged per pt request for what meal/diet options available.
[2020-11-28] MEDS ORDERED: iohexol 300 MG/1 ML 50ml polymer ONE (14:27)
--- NOTE | 2020-11-28 14:55 | NUR ---
F/u: Attempted visit with pt at bedside however pt out of room. Written hypertriglyceridemia and CKD 5 nutrition therapy education left at patient's bedside along with menu for pt to select meals, discharge coordinator notified. Addendum: 11/28/20 at [address] Amended: Links added.
[2020-11-28] MEDS ORDERED: ceFAZolin/D5W- 1GM premix 50 ML IV PRN (17:00)
[2020-11-28 18:00] VITALS: BP 149/85
--- NOTE | 2020-11-28 18:30 | NUR ---
Patient in room JIHAN 354. I have received report from PAULA AYALA and had the opportunity to ask questions and assume patient care.
[2020-11-28] MEDS: MESSAGE TO NURSING IV SCH (20:00)
[2020-11-28] MEDS: traZODone 50mg tablet PO SCH (21:05)
[2020-11-28] MEDS: gabapentin 300mg capsule PO SCH (21:06)
[2020-11-28] MEDS: insulin glargine (Lantus) pen - multi-dose SQ SCH (21:40)
[2020-11-28] MEDS: normal saline 1000ml 1,000 ML IV SCH (21:43)
[2020-11-29] VITALS: BP 132/82
[2020-11-29 06:00] LABS: BASOPHILS # (AUTO) 0.1 X10'3 (0-0.2); BASOPHILS % (AUTO) 0.4 % (0-1); EOSINOPHILS # (AUTO) 0.1 X10'3 (0-0.9); LYMPHOCYTES # (AUTO) 1.7 X10'3 (1.1-4.8); LYMPHOCYTES % (AUTO) 13.4 % (21-51); MEAN CORPUSCULAR HEMOGLOBIN 29.8 PG (27.0-31.0); MEAN CORPUSCULAR HGB CONC 32.8 g/dL (33.0-36.5); MEAN CORPUSCULAR VOLUME 90.9 FL (78-98); MEAN PLATELET VOLUME 7.7 FL (7.4-10.4); MONOCYTES % (AUTO) 7.5 % (2-12); NEUTROPHILS % (AUTO) 77.7 % (42-75); PLATELET COUNT 210 X10'3 (140-440); RED BLOOD COUNT 2.33 X10'6 (4.20-5.60); RED CELL DISTRIBUTION WIDTH 14.9 % (11.5-14.5); WHITE BLOOD COUNT 12.8 X10'3 (4.5-11.0)
[2020-11-29 06:10] LABS: HEMATOCRIT 21.2 % (35.0-45.0)
--- NOTE | 2020-11-29 06:15 | NUR ---
CALLED DR HAMPTON FOR CRITICAL HGB 7.0 AND HCT 21.2 NO NEW ORDERS MADE.
--- NOTE | 2020-11-29 06:30 | NUR ---
Problems reprioritized. Patient report given, questions answered & plan of care reviewed with ELVIE AYALA.
--- NOTE | 2020-11-29 06:45 | NUR ---
Patient in room JIHAN 354C. I have received report from JALYN GUNDERSON RN and had the opportunity to ask questions and assume patient care.
[2020-11-29 06:54] LABS: ALANINE AMINOTRANSFERASE 23 U/L (12-78); ALBUMIN 1.4 G/DL (3.4-5.0); ALBUMIN/GLOBULIN RATIO 0.3 (1.1-1.5); ALKALINE PHOSPHATASE 354 IU/L (46-116); ANION GAP 8 (8-16); ASPARTATE AMINO TRANSFERASE 17 U/L (10-37); BILIRUBIN,TOTAL 0.3 MG/DL (0.1-1.0); BLOOD UREA NITROGEN 30 MG/DL (7-18); BUN/CREATININE RATIO 6.7 (6.6-38.0); CALCIUM 7.8 MG/DL (8.5-10.1); CHLORIDE 99 MMOL/L (99-107); CREATININE 4.45 MG/DL (0.40-0.90); GLUCOSE 103 MG/DL (70-104); POTASSIUM 3.6 MMOL/L (3.5-5.1); SODIUM 133 MMOL/L (135-145); TOTAL CARBON DIOXIDE 25.9 MMOL/L (24-32); TOTAL PROTEIN 6.4 G/DL (6.4-8.2); eGFR 10 ML/MIN
[2020-11-29 07:00] VITALS: BP 148/79
[2020-11-29] MEDS: nitroGLYCERIN 0.4mg/hour patch TD SCH (08:00)
[2020-11-29] MEDS: metoprolol succinate 25mg (24-HOUR) SR. Tablet PO SCH (08:05)
[2020-11-29] MEDS: sevelamer carbonate 800mg tablet PO SCH ×3 (08:05→18:00)
[2020-11-29] MEDS: lactobacillus rhamnosus 10,000 MMU CELLS/CAPSULE PO SCH ×2 (08:06→20:10)
[2020-11-29] MEDS: FLUoxetine 20mg capsule PO SCH (08:06)
[2020-11-29] MEDS: venlafaxine XR 75mg capsule (Q24H) PO SCH (08:06)
[2020-11-29] MEDS: amLODIPine 5mg tablet PO SCH (08:06)
[2020-11-29] MEDS: docusate sod 100mg capsule PO SCH ×2 (08:06→20:11)
[2020-11-29] MEDS: OMEGA-3/DHA/EPA/FISH OIL 1 EACH CAPSULE.DR PO SCH (08:06)
[2020-11-29] MEDS: aspirin 325mg tablet, delayed-release (Ecotrin) PO SCH (08:06)
[2020-11-29] MEDS: pantoprazole 40mg Tablet.DR PO SCH (08:06)
[2020-11-29] MEDS: HYDROcodone/acetaminophen 10/325mg tab PO PRN ×3 (08:07→20:12)
[2020-11-29] MEDS: heparin, porcine 5000 units/ml vial SQ SCH ×2 (08:07→20:13)
[2020-11-29 08:23] LABS: HYPOCHROMASIA 1+; PLATELET ESTIMATE NORMAL; POLYCHROMASIA 2+; TOTAL CELLS COUNTED 100
[2020-11-29] MEDS: ipratropium/albuterol 3ml nebule NEB SCH ×3 (09:30→20:40)
[2020-11-29] MEDS ORDERED: normal saline 1000ml 250 ML IV PRN (10:20)
[2020-11-29] MEDS ORDERED: EPOETIN ALFA-EPBX 20,000 UNIT/ML 1 ML MDV IV ONE (10:20)
[2020-11-29] MEDS ORDERED: heparin 1,000unit/ml 10ml vial 10 ML IV ONE (10:20)
[2020-11-29] MEDS ORDERED: cefazolin/dext.iso 2gm/100ml 100 ML IV ONE (10:25)
[2020-11-29] MEDS ORDERED: heparin 1,000 units/ml 10ml inj HE ONE ×2 (10:25)
[2020-11-29 11:00] VITALS: BP 138/85
[2020-11-29] MEDS: nicotine 21mg patch - 24 hr TD SCH (12:30)
[2020-11-29] MEDS ORDERED: ceFAZolin 1GM/D5W- ADD-VANTAGE 50 ML IV ONE (15:00)
[2020-11-29 16:09] LABS: FERRITIN 447 NG/ML (8-252)
[2020-11-29 16:15] LABS: % IRON SATURATION 22 % (11-46); IRON 19 UG/DL (49-151); TOTAL IRON BINDING CAPACITY 86 UG/DL (259-388)
--- NOTE | 2020-11-29 18:26 | NUR ---
Problems reprioritized. Patient report given, questions answered & plan of care reviewed with JAMIE ELIZABETH.
--- NOTE | 2020-11-29 18:38 | NUR ---
Patient in room JIHAN 354. I have received report from JAMIE BERMEO and had the opportunity to ask questions and assume patient care. Addendum: 11/29/20 at 1838 by Domenica Ruiz RN Amended: Links added.
--- NOTE | 2020-11-29 20:05 | NUR ---
dialysis completed 2 liters off. hung iv abx no s&s of distress at this time but c/o abd pain and medicated with po norco for this.
[2020-11-29] MEDS: MESSAGE TO NURSING IV SCH (20:14)
[2020-11-29] MEDS: insulin glargine (Lantus) pen - multi-dose SQ SCH (20:35)
[2020-11-29] MEDS: traZODone 50mg tablet PO SCH (20:35)
[2020-11-29] MEDS: gabapentin 300mg capsule PO SCH (20:36)
[2020-11-29 20:40] VITALS: BP 153/87
--- NOTE | 2020-11-29 21:30 | NUR ---
UP WITH ASSIST TO BRP TO VOID.
[2020-11-30] VITALS: BP 157/91
--- NOTE | 2020-11-30 06:17 | NUR ---
Problems reprioritized. Patient report given, questions answered & plan of care reviewed with JAMIE BERMEO. Addendum: 11/30/20 at 0618 by Domenica Ruiz RN Amended: Links added.
--- NOTE | 2020-11-30 06:36 | NUR ---
Patient in room JIHAN 354C. I have received report from JAMIE ELIZABETH and had the opportunity to ask questions and assume patient care.
[2020-11-30] MEDS: docusate sod 100mg capsule PO SCH (07:55)
[2020-11-30] MEDS: FLUoxetine 20mg capsule PO SCH (07:56)
[2020-11-30] MEDS: sevelamer carbonate 800mg tablet PO SCH ×2 (07:56→13:06)
[2020-11-30] MEDS: lactobacillus rhamnosus 10,000 MMU CELLS/CAPSULE PO SCH (07:56)
[2020-11-30] MEDS: metoprolol succinate 25mg (24-HOUR) SR. Tablet PO SCH (07:56)
[2020-11-30] MEDS: OMEGA-3/DHA/EPA/FISH OIL 1 EACH CAPSULE.DR PO SCH (07:56)
[2020-11-30] MEDS: amLODIPine 5mg tablet PO SCH (07:57)
[2020-11-30] MEDS: pantoprazole 40mg Tablet.DR PO SCH (07:57)
[2020-11-30] MEDS: aspirin 325mg tablet, delayed-release (Ecotrin) PO SCH (07:57)
[2020-11-30] MEDS: heparin, porcine 5000 units/ml vial SQ SCH (07:58)
[2020-11-30] MEDS: venlafaxine XR 75mg capsule (Q24H) PO SCH (07:58)
[2020-11-30] MEDS: HYDROcodone/acetaminophen 10/325mg tab PO PRN (07:59)
[2020-11-30 08:00] VITALS: BP 154/90
[2020-11-30] MEDS ORDERED: folic acid 1mg tablet PO SCH (08:00)
[2020-11-30] MEDS: nicotine 21mg patch - 24 hr TD SCH (08:00)
[2020-11-30] MEDS ORDERED: folic acid/vitamin B complex w/vitamin C 0.8mg tablet PO SCH (08:00)
[2020-11-30] MEDS: ipratropium/albuterol 3ml nebule NEB SCH (08:28)
[2020-11-30 09:41] LABS: BASOPHILS # (AUTO) 0.1 X10'3 (0-0.2); BASOPHILS % (AUTO) 0.5 % (0-1); EOSINOPHILS # (AUTO) 0.1 X10'3 (0-0.9); HEMATOCRIT 23.2 % (35.0-45.0); HEMOGLOBIN 7.5 g/dl (12.0-16.0); LYMPHOCYTES # (AUTO) 1.6 X10'3 (1.1-4.8); LYMPHOCYTES % (AUTO) 13.2 % (21-51); MEAN CORPUSCULAR HGB CONC 32.2 g/dL (33.0-36.5); MEAN PLATELET VOLUME 7.8 FL (7.4-10.4); MONOCYTES # (AUTO) 0.8 X10'3 (0-0.9); NEUTROPHILS # (AUTO) 9.4 X10'3 (1.8-7.7); NEUTROPHILS % (AUTO) 78.3 % (42-75); PLATELET COUNT 238 X10'3 (140-440); RED CELL DISTRIBUTION WIDTH 15.5 % (11.5-14.5)
[2020-11-30 10:12] LABS: HYPOCHROMASIA 1+; PLATELET ESTIMATE NORMAL
[2020-11-30 10:14] LABS: STOMATOCYTES 1+
[2020-11-30] MEDS ORDERED: FOLI0.4T6 PO (11:07)
[2020-11-30] MEDS ORDERED: FOLI0.8T19 PO (11:08)
--- NOTE | 2020-11-30 13:15 | NUR ---
PATIENT STABLE AND APPROPRIATE FOR DISCHARGE, IV TAKEN OUT, TDC REDRESSED, NEW MEDS E-SCRIPTED TO PREFERRED PHARMACY, EDUCATION GIVEN, ALL BELONGINGS SENT WITH PATIENT, PATIENT TAKEN TO LOBBY BY WHEELCHAIR TO AN AWAITING CAR WHERE FAMILY WILL TAKE PATIENT HOME
== END 2020-11-30 13:15 | disposition home health service (06) | DRG 710 ==
LOC: ER 14:20 → ED HOLD 19:35 → PCU 3S 11-25 08:15 → SUR 3N 11-27 17:37
PROVIDERS: ADMIT Family Medicine; ATTEND Family Medicine
PROC: 5A1D70Z Performance of Urinary Filtration, Intermittent, Less than 6 Hours Per Day (ICD-10-PCS; 2020-11-25)
PROC: 02HV33Z Insertion of Infusion Device into Superior Vena Cava, Percutaneous Approach (ICD-10-PCS; 2020-11-26)
PROC: B548ZZA Ultrasonography of Superior Vena Cava, Guidance (ICD-10-PCS; 2020-11-26)
PROC: B5181ZA Fluoroscopy of Superior Vena Cava using Low Osmolar Contrast, Guidance (ICD-10-PCS; 2020-11-26)
PROC: 5A1D70Z Performance of Urinary Filtration, Intermittent, Less than 6 Hours Per Day (ICD-10-PCS; 2020-11-26)
PROC: 5A1D70Z Performance of Urinary Filtration, Intermittent, Less than 6 Hours Per Day (ICD-10-PCS; 2020-11-27)
PROC: 0JH63XZ Insertion of Tunneled Vascular Access Device into Chest Subcutaneous Tissue and Fascia, Percutaneous Approach (ICD-10-PCS; principal; 2020-11-28)
PROC: 027V3ZZ Dilation of Superior Vena Cava, Percutaneous Approach (ICD-10-PCS; 2020-11-28)
PROC: 02HV33Z Insertion of Infusion Device into Superior Vena Cava, Percutaneous Approach (ICD-10-PCS; 2020-11-28)
PROC: B548ZZA Ultrasonography of Superior Vena Cava, Guidance (ICD-10-PCS; 2020-11-28)
PROC: B5181ZA Fluoroscopy of Superior Vena Cava using Low Osmolar Contrast, Guidance (ICD-10-PCS; 2020-11-28)
PROC: 5A1D70Z Performance of Urinary Filtration, Intermittent, Less than 6 Hours Per Day (ICD-10-PCS; 2020-11-29)
DX: A41.01 Sepsis due to Methicillin susceptible Staphylococcus aureus (principal); G93.41 Metabolic encephalopathy; J18.9 Pneumonia, unspecified organism; E87.2 Acidosis; J90 Pleural effusion, not elsewhere classified; E27.8 Other specified disorders of adrenal gland; E11.21 Type 2 diabetes mellitus with diabetic nephropathy; E11.22 Type 2 diabetes mellitus with diabetic chronic kidney disease; E11.65 Type 2 diabetes mellitus with hyperglycemia; D63.1 Anemia in chronic kidney disease; E78.00 Pure hypercholesterolemia, unspecified; E78.5 Hyperlipidemia, unspecified; E83.39 Other disorders of phosphorus metabolism; E83.51 Hypocalcemia; E87.1 Hypo-osmolality and hyponatremia; E88.09 Other disorders of plasma-protein metabolism, not elsewhere classified; E24.9 Cushing's syndrome, unspecified; M25.511 Pain in right shoulder; Z20.822 Contact with and (suspected) exposure to COVID-19; I87.1 Compression of vein; R91.1 Solitary pulmonary nodule; I12.0 Hypertensive chronic kidney disease with stage 5 chronic kidney disease or end stage renal disease; J45.909 Unspecified asthma, uncomplicated; N18.6 End stage renal disease; Z72.0 Tobacco use; Z99.2 Dependence on renal dialysis; Z79.899 Other long term (current) drug therapy; Z79.4 Long term (current) use of insulin; Z71.6 Tobacco abuse counseling; Z79.82 Long term (current) use of aspirin; W06.XXXA Fall from bed, initial encounter; Y93.89 Activity, other specified; Y92.230 Patient room in hospital as the place of occurrence of the external cause; Y99.8 Other external cause status
CPT/HCPCS: 36415; 36556; 36558; 37248; 71045; 71250; 73030; 73060; 73080; 76937; 77001; 80053; 80061; 80202; 80305; 81001; 82550; 82728; 82948; 83036; 83540; 83550; 83605; 83690; 83735; 83880; 84100; 84145; 84443; 84484; 85007; 85008; 85025; 85610; 85730; 87040; 87077; 87081; 87186; 87340; 87635; 93005; 93306; 93931; 93971; 94640; 94760; 96361; 96365; 96375; 99285; A9270; C1725; C1750; C1751; C1769; C1894; C9803; G0257; G0378; J0456; J0690; J0696; J1644; J1815; J2250; J2270; J2405; J2543; J2997; J3010; J3370; J7030; Q0163; Q4081; Q9967

== ENCOUNTER 2020-12-13 13:32 | Emergency (ER) | payer MEDICAID ==
[2020-12-13] VITALS (8 sets, daily range): BP systolic 139–160; BP diastolic 83–96
[~2020-12-13] VITALS: Ht 167.6 cm; Wt 90.0 kg
[~2020-12-13 13:32] MED LIST changes: +FOLI0.4T6 PO; +FOLI0.8T19 PO; -HYDROCODONE
[2020-12-13 14:44] LABS: ALBUMIN 1.4 G/DL (3.4-5.0); ANION GAP 4 (8-16); BLOOD UREA NITROGEN 25 MG/DL (7-18); BUN/CREATININE RATIO 5.3 (6.6-38.0); CALCIUM 7.8 MG/DL (8.5-10.1); CHLORIDE 104 MMOL/L (99-107); CREATININE 4.74 MG/DL (0.40-0.90); GLUCOSE 177 MG/DL (70-104); POTASSIUM 3.9 MMOL/L (3.5-5.1); SODIUM 141 MMOL/L (135-145); TOTAL CARBON DIOXIDE 32.7 MMOL/L (24-32); eGFR 10 ML/MIN
[2020-12-13 15:29] LABS: BASOPHILS # (AUTO) 0.1 X10'3 (0-0.2); BASOPHILS % (AUTO) 1.3 % (0-1); EOSINOPHILS # (AUTO) 0.1 X10'3 (0-0.9); LYMPHOCYTES # (AUTO) 1.3 X10'3 (1.1-4.8); LYMPHOCYTES % (AUTO) 20.3 % (21-51); MEAN CORPUSCULAR HEMOGLOBIN 30.7 PG (27.0-31.0); MEAN CORPUSCULAR HGB CONC 32.4 g/dL (33.0-36.5); MEAN CORPUSCULAR VOLUME 94.5 FL (78-98); MEAN PLATELET VOLUME 6.7 FL (7.4-10.4); MONOCYTES # (AUTO) 0.4 X10'3 (0-0.9); MONOCYTES % (AUTO) 6.5 % (2-12); NEUTROPHILS # (AUTO) 4.6 X10'3 (1.8-7.7); NEUTROPHILS % (AUTO) 69.9 % (42-75); PLATELET COUNT 383 X10'3 (140-440); RED BLOOD COUNT 2.24 X10'6 (4.20-5.60); RED CELL DISTRIBUTION WIDTH 15.3 % (11.5-14.5); WHITE BLOOD COUNT 6.6 X10'3 (4.5-11.0)
[2020-12-13 15:31] LABS: HEMATOCRIT 21.2 % (35.0-45.0); HEMOGLOBIN 6.9 g/dl (12.0-16.0)
[2020-12-13] MEDS ORDERED: HYDROcodone/acetaminophen 5mg/325mg tablet PO ONE (17:20)
[2020-12-13 17:54] LABS: OCCULT BLOOD STOOL NEGATIVE (Neg)
[2020-12-14 00:10] VITALS: BP 166/88
[2020-12-14 01:13] LABS: HEMATOCRIT 27.8 % (35.0-45.0); HEMOGLOBIN 9.4 g/dl (12.0-16.0); MEAN CORPUSCULAR HGB CONC 33.9 g/dL (33.0-36.5); MEAN CORPUSCULAR VOLUME 91.4 FL (78-98); MEAN PLATELET VOLUME 6.9 FL (7.4-10.4); PLATELET COUNT 406 X10'3 (140-440); RED BLOOD COUNT 3.04 X10'6 (4.20-5.60); RED CELL DISTRIBUTION WIDTH 15.2 % (11.5-14.5); WHITE BLOOD COUNT 7.2 X10'3 (4.5-11.0)
== END 2020-12-14 01:27 | disposition home or self-care (01) ==
LOC: ER 13:33
DX: D64.9 Anemia, unspecified (principal); M25.511 Pain in right shoulder; I12.0 Hypertensive chronic kidney disease with stage 5 chronic kidney disease or end stage renal disease; E78.00 Pure hypercholesterolemia, unspecified; J45.909 Unspecified asthma, uncomplicated; G89.29 Other chronic pain; M79.7 Fibromyalgia; F17.200 Nicotine dependence, unspecified, uncomplicated; Z87.01 Personal history of pneumonia (recurrent); Z99.2 Dependence on renal dialysis; Z79.4 Long term (current) use of insulin; Z79.899 Other long term (current) drug therapy
CPT/HCPCS: 36415; 36430; 73030; 80048; 82272; 85025; 85027; 86885; 86900; 86901; 86920; 93005; 99285; P9016

== ENCOUNTER 2021-01-25 22:27 | Inpatient (IN) | payer MEDICAID ==
[~2021-01-25] VITALS: Ht 167.6 cm; Wt 76.0 kg
[2021-01-25 23:14] LABS: BASOPHILS # (AUTO) 0.2 X10'3 (0-0.2); BASOPHILS % (AUTO) 1.4 % (0-1); EOSINOPHILS # (AUTO) 0.1 X10'3 (0-0.9); EOSINOPHILS % (AUTO) 0.4 % (0-6); HEMATOCRIT 31.4 % (35.0-45.0); HEMOGLOBIN 10.3 g/dl (12.0-16.0); LYMPHOCYTES # (AUTO) 0.8 X10'3 (1.1-4.8); LYMPHOCYTES % (AUTO) 4.9 % (21-51); MEAN CORPUSCULAR HEMOGLOBIN 30.7 PG (27.0-31.0); MEAN CORPUSCULAR HGB CONC 32.7 g/dL (33.0-36.5); MEAN CORPUSCULAR VOLUME 93.9 FL (78-98); MEAN PLATELET VOLUME 6.9 FL (7.4-10.4); MONOCYTES # (AUTO) 0.6 X10'3 (0-0.9); MONOCYTES % (AUTO) 3.7 % (2-12); NEUTROPHILS # (AUTO) 13.8 X10'3 (1.8-7.7); NEUTROPHILS % (AUTO) 89.6 % (42-75); PLATELET COUNT 330 X10'3 (140-440); RED BLOOD COUNT 3.34 X10'6 (4.20-5.60); RED CELL DISTRIBUTION WIDTH 16.7 % (11.5-14.5); WHITE BLOOD COUNT 15.4 X10'3 (4.5-11.0)
[2021-01-25 23:38] LABS: ALBUMIN 1.9 G/DL (3.4-5.0); ALBUMIN/GLOBULIN RATIO 0.3 (1.1-1.5); ALKALINE PHOSPHATASE 190 IU/L (46-116); ANION GAP 9 (8-16); ASPARTATE AMINO TRANSFERASE 13 U/L (10-37); BILIRUBIN,TOTAL 0.5 MG/DL (0.1-1.0); BLOOD UREA NITROGEN 21 MG/DL (7-18); BUN/CREATININE RATIO 4.9 (6.6-38.0); CALCIUM 8.2 MG/DL (8.5-10.1); CHLORIDE 98 MMOL/L (99-107); CREATININE 4.32 MG/DL (0.40-0.90); GLUCOSE 199 MG/DL (70-104); POTASSIUM 3.4 MMOL/L (3.5-5.1); SODIUM 136 MMOL/L (135-145); TOTAL CARBON DIOXIDE 29.1 MMOL/L (24-32); TOTAL PROTEIN 7.8 G/DL (6.4-8.2); eGFR 11 ML/MIN
[2021-01-25 23:45] LABS: ALANINE AMINOTRANSFERASE < 6 U/L (12-78)
[2021-01-26] MEDS ORDERED: vancomycin/NS 1 GM ADD-VANTAGE 250 ML IV ONE (00:30)
[2021-01-26] MEDS ORDERED: azithromycin/NS 500mg/250ml 250 ML IV ONE (00:30)
[2021-01-26] MEDS ORDERED: piperacillin/tazo 3.375gm/50ml 50 ML IV ONE (00:30)
--- NOTE | 2021-01-26 01:10 | NUR ---
TOOK PT OFF NRB, PUT ON 6L NC, SATURATION IS HOLDING BETWEEN 91-92%
[2021-01-26] MEDS ORDERED: HYDROcodone/acetaminophen 5mg/325mg tablet PO PRN (01:45)
[2021-01-26] MEDS ORDERED: morphine 2 MG/ML inj. syringe IV PRN (01:45)
[2021-01-26] MEDS ORDERED: magnesium Cl slow-release 64mg tablet PO PRN (01:45)
[2021-01-26] MEDS ORDERED: ondansetron/PF 4mg/2ml inj IV PRN (01:45)
[2021-01-26] MEDS ORDERED: magnesium hydroxide 30ml (MOM) UD suspension PO PRN (01:45)
[2021-01-26] MEDS ORDERED: potassium Cl 40MEQ/1/2NS 520ml 520 ML IV PRN ×2 (01:45)
[2021-01-26] MEDS ORDERED: mag hydrox/Alum hydrox/simeth 30ml oral suspension PO PRN (01:45)
[2021-01-26] MEDS ORDERED: potassium Cl 20 mEq SR tablet PO PRN ×2 (01:45)
[2021-01-26] MEDS ORDERED: magnesium 2GM in 50ml NS 50 ML IV PRN (01:45)
[2021-01-26] MEDS ORDERED: magnesium 4gm in 100ml NS 100 ML IV PRN (01:45)
[2021-01-26] MEDS ORDERED: acetaminophen 325mg tablet PO PRN ×2 (01:45)
[2021-01-26 01:56] LABS: D-DIMER 1.68 MG/L FEU (0-0.50)
[2021-01-26 02:00] LABS: ABG BASE EXCESS 4.2 mmol/L (-2.0-2.0); ABG HCO3 28.2 mmol/L (22.0-26.0); ABG OXYGEN SATURATION 86.6 % (94-97); ABG PCO2 (T) 39.4 mmHg (32.0-45.0); ALLEN'S TEST POSITIVE; FCOHb 1.6 % (0.0-3.9); FLOW 7 L/min; FO2Hb 85.2 % (94-97); PATIENT TEMPERATURE 36.9; TOTAL HEMOGLOBIN 10.6 G/dl (12.0-16.0)
[2021-01-26] MEDS ORDERED: MESSAGE TO PHARMACY PO ONE (02:00)
[2021-01-26] MEDS ORDERED: dextrose ORAL solution 15 GM/59 ML bottle PO PRN ×2 (02:00)
[2021-01-26] MEDS ORDERED: dextrose 50%-water 50ml dispensing syringe IV PRN ×2 (02:00)
[2021-01-26] MEDS ORDERED: glucagon, human recombinant 1mg kit SUBCUT PRN (02:00)
[2021-01-26] MEDS: normal saline 1000ml 1,000 ML IV SCH (02:28)
[2021-01-26 02:38] LABS: HEMOGLOBIN A1C 5.6 % (4.5-6.2)
[2021-01-26] MEDS ORDERED: HYDR-3972 PO ×2 (02:50→04:56)
[2021-01-26] MEDS ORDERED: vancomycin/NS 1 GM ADD-VANTAGE 250 ML IV PRN (02:55)
[2021-01-26] MEDS ORDERED: VENL75CA61 PO (04:44)
[2021-01-26] MEDS ORDERED: CALC0.5C8 PO (04:44)
[2021-01-26] MEDS ORDERED: METO100T14 PO (04:44)
[2021-01-26] MEDS ORDERED: FURO40TA4 PO (04:44)
[2021-01-26] MEDS ORDERED: GABA300C PO (04:44)
[2021-01-26] MEDS ORDERED: NICO-687 TOP (04:44)
[2021-01-26] MEDS ORDERED: FLUT1AER4 IH (04:44)
[2021-01-26] MEDS ORDERED: TIOT4MIS3 INH (04:54)
[2021-01-26] MEDS ORDERED: PERFLUTREN PROTEIN-A MICROSPHR (Optison) 0.22 MG/ML 3ML VIAL IV ONE (08:00)
[2021-01-26] MEDS: K and/or MAG REPLACEMENT MC SCH ×3 (08:00→20:00)
[2021-01-26] MEDS: furosemide 40mg/4ml inj IV SCH ×2 (08:01→20:00)
[2021-01-26] MEDS: heparin, porcine 5000 units/ml vial SQ SCH ×2 (08:02→20:00)
[2021-01-26] MEDS: CefTRIAXone 2gm/D5W 50ml BAG 50 ML IV SCH (08:02)
--- NOTE | 2021-01-26 09:57 | NUR ---
nuclear med called annie AYALA that no order was put in for nuclear med previously so x ray will be completed tomorrow.
--- NOTE | 2021-01-26 10:35 | NUR ---
PATIENT STATES SHE CAN NOT BREATHE, YELLING "PLEASE HELP ME", TRIPOD BREATHING, HI RAMON UP TO 15 L.
--- NOTE | 2021-01-26 10:52 | NUR ---
RT AT BEDSIDE, PAT STATES SHE CAN NOT BREATHE, HIGH FLOW 15L, PLACED ON NON REBREATHER 15L, SPO2 87%, BILATERAL CRACKLES AUSCULTATED.
--- NOTE | 2021-01-26 10:55 | NUR ---
DR CRANE AT BEDSIDE TO ASSESS PATIENT AT THIS TIME, RT RECEIVED ORDERS FOR ABG, PAT CONTINUES TO SPO2 88% ON 15L HI RAMON AND NON REBREATHER 15L.
[2021-01-26 11:04] LABS: ABG BASE EXCESS -3.6 mmol/L (-2.0-2.0); ABG HCO3 22.2 mmol/L (22.0-26.0); ABG OXYGEN SATURATION 88.9 % (94-97); ABG PCO2 (T) 42.1 mmHg (32.0-45.0); ABG PO2 (T) 62.7 mmHg (75.0-100.0); ALLEN'S TEST POSITIVE; FCOHb 0.5 % (0.0-3.9); FMetHb 0.1 % (0.0-1.5); FO2Hb 88.4 % (94-97); PATIENT TEMPERATURE 36.7; TOTAL HEMOGLOBIN 11.6 G/dl (12.0-16.0)
[2021-01-26] MEDS: LORazepam 2 mg/ml vial IV PRN ×2 (11:17→21:13)
[2021-01-26] MEDS ORDERED: VANCOMYCIN LEVEL IV ONE (12:00)
[2021-01-26 14:51] LABS: ABG BASE EXCESS 1.9 mmol/L (-2.0-2.0); ABG HCO3 26.4 mmol/L (22.0-26.0); ABG OXYGEN SATURATION 94.6 % (94-97); ABG PCO2 (T) 40.9 mmHg (32.0-45.0); ABG PO2 (T) 75.4 mmHg (75.0-100.0); ALLEN'S TEST POSITIVE; FCOHb 0.5 % (0.0-3.9); FMetHb 0.1 % (0.0-1.5)
[2021-01-26] MEDS ORDERED: heparin 1,000 units/ml 10ml inj IV ONE ×2 (15:55)
[2021-01-26] MEDS ORDERED: zolpidem 5mg tablet PO PRN (15:55)
[2021-01-26] MEDS ORDERED: albumin (human) 25% 100ml IV 100 ML IV PRN (15:55)
[2021-01-26] MEDS ORDERED: heparin 1,000 units/ml 10ml inj HE ONE ×2 (16:00)
[2021-01-26] MEDS ORDERED: albuterol 2.5 MG/3 ML nebule NEB PRN (16:00)
[2021-01-26] MEDS ORDERED: furosemide 10 MG/1 ML 10ml inj IV ONE (16:00)
[2021-01-26 16:30] VITALS: BP 170/82
[2021-01-26] MEDS: sevelamer carbonate 800mg tablet PO SCH (18:00)
--- NOTE | 2021-01-26 19:12 | NUR ---
RT page Jessica Stevenson rm [phone] Please evaluate, need to move bipap to other side of bed for dialysis set up, salter needs H2O. Thanks!
[2021-01-26] MEDS ORDERED: SALMETEROL IH SCH (20:00)
[2021-01-26] MEDS: metoprolol tartrate 50mg tablet PO SCH (20:00)
[2021-01-26] MEDS ORDERED: furosemide 40mg/4ml inj IV SCH (20:00)
[2021-01-26] MEDS ORDERED: FLUTICASONE IH SCH (20:00)
[2021-01-26] MEDS: albuterol 2.5 MG/3 ML nebule NEB SCH (20:26)
[2021-01-26] MEDS: budesonide 0.5mg/2ml UD nebule IH SCH (20:26)
[2021-01-26] MEDS ORDERED: insulin glargine (Lantus) pen - multi-dose SQ SCH (21:00)
[2021-01-26] MEDS: insulin glargine (Lantus) pen - multi-dose SQ SCH (21:00)
[2021-01-26] MEDS: gabapentin 300mg capsule PO SCH (21:08)
[2021-01-26] MEDS: lactobacillus rhamnosus 10,000 MMU CELLS/CAPSULE PO SCH (21:09)
[2021-01-26] MEDS: traZODone 50mg tablet PO SCH (21:09)
[2021-01-27] MEDS: albuterol 2.5 MG/3 ML nebule NEB SCH ×4 (02:48→20:16)
[2021-01-27] MEDS: VANCOMYCIN LEVEL IV SCH (03:00)
[2021-01-27 06:00] VITALS: BP 145/77
[2021-01-27] MEDS: budesonide 0.5mg/2ml UD nebule IH SCH ×2 (06:51→20:16)
--- NOTE | 2021-01-27 06:52 | NUR ---
Problems reprioritized. Patient report given, questions answered & plan of care reviewed with JAMIE Zarco.
[2021-01-27 07:03] LABS: BASOPHILS # (AUTO) 0.1 X10'3 (0-0.2); BASOPHILS % (AUTO) 0.9 % (0-1); EOSINOPHILS # (AUTO) 0.1 X10'3 (0-0.9); EOSINOPHILS % (AUTO) 1.3 % (0-6); HEMATOCRIT 32.5 % (35.0-45.0); HEMOGLOBIN 10.5 g/dl (12.0-16.0); LYMPHOCYTES # (AUTO) 1.7 X10'3 (1.1-4.8); LYMPHOCYTES % (AUTO) 18.5 % (21-51); MEAN CORPUSCULAR HGB CONC 32.2 g/dL (33.0-36.5); MEAN CORPUSCULAR VOLUME 96.2 FL (78-98); MEAN PLATELET VOLUME 7.1 FL (7.4-10.4); NEUTROPHILS # (AUTO) 6.2 X10'3 (1.8-7.7); NEUTROPHILS % (AUTO) 68.3 % (42-75); PLATELET COUNT 319 X10'3 (140-440); RED BLOOD COUNT 3.37 X10'6 (4.20-5.60); RED CELL DISTRIBUTION WIDTH 16.7 % (11.5-14.5); WHITE BLOOD COUNT 9.2 X10'3 (4.5-11.0)
[2021-01-27 07:13] LABS: ALBUMIN 1.8 G/DL (3.4-5.0); ALBUMIN/GLOBULIN RATIO 0.3 (1.1-1.5); ALKALINE PHOSPHATASE 175 IU/L (46-116); ANION GAP 3 (8-16); ASPARTATE AMINO TRANSFERASE 14 U/L (10-37); BILIRUBIN,TOTAL 0.5 MG/DL (0.1-1.0); BLOOD UREA NITROGEN 16 MG/DL (7-18); BUN/CREATININE RATIO 4.5 (6.6-38.0); CALCIUM 8.5 MG/DL (8.5-10.1); CHLORIDE 99 MMOL/L (99-107); CREATININE 3.56 MG/DL (0.40-0.90); GLUCOSE 115 MG/DL (70-104); MAGNESIUM 2.4 MG/DL (1.5-2.4); POTASSIUM 3.7 MMOL/L (3.5-5.1); SODIUM 129 MMOL/L (135-145); TOTAL CARBON DIOXIDE 26.9 MMOL/L (24-32); TOTAL PROTEIN 7.4 G/DL (6.4-8.2); eGFR 13 ML/MIN
[2021-01-27 07:17] LABS: ALANINE AMINOTRANSFERASE < 6 U/L (12-78)
[2021-01-27] MEDS: sevelamer carbonate 800mg tablet PO SCH ×3 (07:53→17:31)
[2021-01-27] MEDS: venlafaxine XR 75mg capsule (Q24H) PO SCH ×2 (07:54)
[2021-01-27] MEDS: lactobacillus rhamnosus 10,000 MMU CELLS/CAPSULE PO SCH ×2 (07:54→20:36)
[2021-01-27] MEDS: FLUoxetine 20mg capsule PO SCH (07:54)
[2021-01-27] MEDS: calcitriol 0.25mcg capsule PO SCH (07:55)
[2021-01-27] MEDS: gabapentin 300mg capsule PO SCH ×2 (07:55→20:30)
[2021-01-27] MEDS: OMEGA-3/DHA/EPA/FISH OIL 1 EACH CAPSULE.DR PO SCH (07:55)
[2021-01-27] MEDS: heparin, porcine 5000 units/ml vial SQ SCH ×2 (07:56→20:36)
[2021-01-27] MEDS: nicotine 21mg patch - 24 hr TD SCH (07:56)
[2021-01-27] MEDS: CefTRIAXone 2gm/D5W 50ml BAG 50 ML IV SCH (07:57)
[2021-01-27] MEDS: furosemide 40mg/4ml inj IV SCH ×2 (07:57→20:28)
[2021-01-27] MEDS ORDERED: Tiotropium Br/Olodaterol HCl (Stiolto Respimat Inhal Spray) IH SCH (08:00)
[2021-01-27] MEDS: K and/or MAG REPLACEMENT MC SCH ×2 (08:00→20:00)
[2021-01-27] MEDS: HYDROcodone/acetaminophen 10/325mg tab PO PRN ×2 (08:04→22:23)
[2021-01-27] MEDS: LORazepam 2 mg/ml vial IV PRN ×2 (10:32→20:28)
[2021-01-27 11:00] VITALS: BP 130/65
[2021-01-27] MEDS ORDERED: vancomycin/NS 1 GM ADD-VANTAGE 250 ML IV ONE (12:15)
[2021-01-27] MEDS: amLODIPine 5mg tablet PO SCH (13:08)
[2021-01-27] MEDS: metoprolol tartrate 50mg tablet PO SCH ×2 (13:09→20:34)
[2021-01-27] MEDS: insulin Lispro (HumaLOG) vial - multi-dose SQ SCH (14:17)
[2021-01-27 15:00] VITALS: BP 116/60
[2021-01-27 18:00] VITALS: BP 135/64
--- NOTE | 2021-01-27 18:24 | NUR ---
Report given to Nicole AYALA.
[2021-01-27] MEDS: insulin glargine (Lantus) pen - multi-dose SQ SCH (21:00)
[2021-01-27 22:00] VITALS: BP 132/64
[2021-01-27] MEDS: traZODone 50mg tablet PO SCH (22:22)
[2021-01-28] MEDS: normal saline 1000ml 1,000 ML IV SCH (01:45)
[2021-01-28 02:00] VITALS: BP 136/69
[2021-01-28] MEDS: albuterol 2.5 MG/3 ML nebule NEB SCH ×4 (02:26→19:58)
[2021-01-28] MEDS: VANCOMYCIN LEVEL IV SCH (03:00)
[2021-01-28 06:00] VITALS: BP 124/75
--- NOTE | 2021-01-28 06:00 | NUR ---
Patient in room PCU 3019. I have received report from Nicole AYALA and had the opportunity to ask questions and assume patient care.
--- NOTE | 2021-01-28 06:08 | NUR ---
Problems reprioritized. Patient report given, questions answered & plan of care reviewed with JAMIE Tillman.
[2021-01-28 06:54] LABS: BASOPHILS # (AUTO) 0.1 X10'3 (0-0.2); EOSINOPHILS # (AUTO) 0.2 X10'3 (0-0.9); EOSINOPHILS % (AUTO) 2.5 % (0-6); HEMOGLOBIN 9.3 g/dl (12.0-16.0); LYMPHOCYTES # (AUTO) 1.8 X10'3 (1.1-4.8); MEAN CORPUSCULAR HGB CONC 33.3 g/dL (33.0-36.5); MEAN CORPUSCULAR VOLUME 93.1 FL (78-98); MONOCYTES # (AUTO) 0.6 X10'3 (0-0.9); MONOCYTES % (AUTO) 7.9 % (2-12); NEUTROPHILS # (AUTO) 4.8 X10'3 (1.8-7.7); NEUTROPHILS % (AUTO) 64.6 % (42-75); PLATELET COUNT 323 X10'3 (140-440); RED BLOOD COUNT 3.01 X10'6 (4.20-5.60); RED CELL DISTRIBUTION WIDTH 16.1 % (11.5-14.5); WHITE BLOOD COUNT 7.4 X10'3 (4.5-11.0)
[2021-01-28 07:26] LABS: ALANINE AMINOTRANSFERASE 6 U/L (12-78); ALBUMIN 1.6 G/DL (3.4-5.0); ALBUMIN/GLOBULIN RATIO 0.3 (1.1-1.5); ALKALINE PHOSPHATASE 166 IU/L (46-116); ANION GAP 8 (8-16); ASPARTATE AMINO TRANSFERASE 12 U/L (10-37); BILIRUBIN,TOTAL 0.3 MG/DL (0.1-1.0); BLOOD UREA NITROGEN 23 MG/DL (7-18); BUN/CREATININE RATIO 5.2 (6.6-38.0); CALCIUM 8.1 MG/DL (8.5-10.1); CHLORIDE 100 MMOL/L (99-107); GLUCOSE 107 MG/DL (70-104); MAGNESIUM 2.2 MG/DL (1.5-2.4); POTASSIUM 3.6 MMOL/L (3.5-5.1); SODIUM 133 MMOL/L (135-145); TOTAL CARBON DIOXIDE 25.5 MMOL/L (24-32); TOTAL PROTEIN 6.6 G/DL (6.4-8.2); VANCOMYCIN,RANDOM 27.6 UG/ML; eGFR 10 ML/MIN
[2021-01-28] MEDS: furosemide 40mg/4ml inj IV SCH ×2 (07:43→21:41)
[2021-01-28] MEDS: CefTRIAXone 2gm/D5W 50ml BAG 50 ML IV SCH (07:46)
[2021-01-28] MEDS: OMEGA-3/DHA/EPA/FISH OIL 1 EACH CAPSULE.DR PO SCH (07:47)
[2021-01-28] MEDS: calcitriol 0.25mcg capsule PO SCH (07:48)
[2021-01-28] MEDS: FLUoxetine 20mg capsule PO SCH (07:48)
[2021-01-28] MEDS: venlafaxine XR 75mg capsule (Q24H) PO SCH ×2 (07:49→08:00)
[2021-01-28] MEDS: lactobacillus rhamnosus 10,000 MMU CELLS/CAPSULE PO SCH ×2 (07:50→21:43)
[2021-01-28] MEDS: sevelamer carbonate 800mg tablet PO SCH ×3 (07:50→18:00)
[2021-01-28] MEDS: gabapentin 300mg capsule PO SCH (07:50)
[2021-01-28] MEDS: amLODIPine 5mg tablet PO SCH (07:51)
[2021-01-28] MEDS: metoprolol tartrate 50mg tablet PO SCH ×2 (07:52→21:42)
[2021-01-28] MEDS: heparin, porcine 5000 units/ml vial SQ SCH ×2 (07:53→21:41)
[2021-01-28] MEDS: nicotine 21mg patch - 24 hr TD SCH (07:59)
[2021-01-28] MEDS ORDERED: normal saline 1000ml 250 ML IV PRN (08:00)
[2021-01-28] MEDS ORDERED: heparin 1,000 units/ml 10ml inj HE ONE ×2 (08:00)
[2021-01-28] MEDS: K and/or MAG REPLACEMENT MC SCH ×2 (08:00→20:00)
[2021-01-28] MEDS ORDERED: EPOETIN ALFA-EPBX 20,000 UNIT/ML 1 ML MDV IV ONE (08:00)
[2021-01-28] MEDS ORDERED: heparin 1,000unit/ml 10ml vial 10 ML IV ONE (08:00)
[2021-01-28] MEDS: budesonide 0.5mg/2ml UD nebule IH SCH (09:42)
[2021-01-28 11:00] VITALS: BP 128/68
[2021-01-28] MEDS: insulin Lispro (HumaLOG) vial - multi-dose SQ SCH (13:14)
[2021-01-28 15:00] VITALS: BP 136/80
[2021-01-28] MEDS: LORazepam 2 mg/ml vial IV PRN (15:41)
--- NOTE | 2021-01-28 17:41 | NUR ---
1500 SVN TRIAGED. THERAPIST NOT AVAILABLE
[2021-01-28 18:00] VITALS: BP 137/73
--- NOTE | 2021-01-28 18:32 | NUR ---
Problems reprioritized. Patient report given, questions answered & plan of care reviewed with Miguelina AYALA.
--- NOTE | 2021-01-28 18:38 | NUR ---
Patient in room PCU 3019. I have received report from JAMIE Tillman and had the opportunity to ask questions and assume patient care.
[2021-01-28] MEDS: insulin glargine (Lantus) pen - multi-dose SQ SCH (21:00)
--- NOTE | 2021-01-28 21:21 | NUR ---
Pt refused Humalog and said she would take "a little Lantus". Dr. Gong said 4 units of Lantus for her.
[2021-01-28 21:40] VITALS: BP 132/56
[2021-01-28] MEDS: traZODone 50mg tablet PO SCH (21:43)
--- NOTE | 2021-01-28 22:01 | NUR ---
Pt refused the Lantus even though it was reduced to 4 units.
[2021-01-28] MEDS: HYDROcodone/acetaminophen 10/325mg tab PO PRN (22:12)
[2021-01-29] MEDS: LORazepam 2 mg/ml vial IV PRN ×2 (00:15→17:36)
[2021-01-29 02:00] VITALS: BP 125/66
[2021-01-29] MEDS: budesonide 0.5mg/2ml UD nebule IH SCH ×2 (03:00→08:12)
[2021-01-29] MEDS: VANCOMYCIN LEVEL IV SCH (03:00)
[2021-01-29 06:00] VITALS: BP 128/84
[2021-01-29 06:25] LABS: BASOPHILS # (AUTO) 0.1 X10'3 (0-0.2); EOSINOPHILS # (AUTO) 0.2 X10'3 (0-0.9); HEMOGLOBIN 10.9 g/dl (12.0-16.0); LYMPHOCYTES # (AUTO) 2.2 X10'3 (1.1-4.8); MEAN CORPUSCULAR HGB CONC 31.9 g/dL (33.0-36.5); MONOCYTES # (AUTO) 0.6 X10'3 (0-0.9); RED BLOOD COUNT 3.61 X10'6 (4.20-5.60)
[2021-01-29 06:27] LABS: BASOPHILS % (AUTO) 1.4 % (0-1); EOSINOPHILS % (AUTO) 3.2 % (0-6); HEMATOCRIT 34.1 % (35.0-45.0); LYMPHOCYTES % (AUTO) 32.7 % (21-51); MEAN CORPUSCULAR HEMOGLOBIN 30.2 PG (27.0-31.0); MEAN CORPUSCULAR VOLUME 94.5 FL (78-98); MEAN PLATELET VOLUME 7.3 FL (7.4-10.4); MONOCYTES % (AUTO) 9.4 % (2-12); NEUTROPHILS # (AUTO) 3.6 X10'3 (1.8-7.7); NEUTROPHILS % (AUTO) 53.3 % (42-75); PLATELET COUNT 412 X10'3 (140-440); RED CELL DISTRIBUTION WIDTH 16.5 % (11.5-14.5); WHITE BLOOD COUNT 6.7 X10'3 (4.5-11.0)
--- NOTE | 2021-01-29 06:29 | NUR ---
Patient in room PCU 3019. I have received report from Miguelina AYALA and had the opportunity to ask questions and assume patient care.
--- NOTE | 2021-01-29 06:34 | NUR ---
Problems reprioritized. Patient report given, questions answered & plan of care reviewed with JAMIE Tillman.
[2021-01-29 06:50] LABS: ALANINE AMINOTRANSFERASE 7 U/L (12-78); ALBUMIN 1.9 G/DL (3.4-5.0); ALBUMIN/GLOBULIN RATIO 0.3 (1.1-1.5); ALKALINE PHOSPHATASE 205 IU/L (46-116); ANION GAP 10 (8-16); ASPARTATE AMINO TRANSFERASE 15 U/L (10-37); BILIRUBIN,TOTAL 0.3 MG/DL (0.1-1.0); BLOOD UREA NITROGEN 15 MG/DL (7-18); BUN/CREATININE RATIO 4.4 (6.6-38.0); CALCIUM 8.7 MG/DL (8.5-10.1); CHLORIDE 96 MMOL/L (99-107); CREATININE 3.41 MG/DL (0.40-0.90); GLUCOSE 137 MG/DL (70-104); MAGNESIUM 2.4 MG/DL (1.5-2.4); SODIUM 134 MMOL/L (135-145); TOTAL CARBON DIOXIDE 27.7 MMOL/L (24-32); TOTAL PROTEIN 7.8 G/DL (6.4-8.2); VANCOMYCIN,RANDOM 18.7 UG/ML; eGFR 14 ML/MIN
[2021-01-29] MEDS: furosemide 40mg/4ml inj IV SCH ×2 (07:31→19:46)
[2021-01-29] MEDS: CefTRIAXone 2gm/D5W 50ml BAG 50 ML IV SCH (07:38)
[2021-01-29] MEDS: sevelamer carbonate 800mg tablet PO SCH ×3 (07:38→17:51)
[2021-01-29] MEDS: OMEGA-3/DHA/EPA/FISH OIL 1 EACH CAPSULE.DR PO SCH (07:39)
[2021-01-29] MEDS: calcitriol 0.25mcg capsule PO SCH (07:39)
[2021-01-29] MEDS: HYDROcodone/acetaminophen 10/325mg tab PO PRN ×2 (07:39→16:55)
[2021-01-29] MEDS: lactobacillus rhamnosus 10,000 MMU CELLS/CAPSULE PO SCH ×2 (07:40→19:45)
[2021-01-29] MEDS: gabapentin 300mg capsule PO SCH (07:40)
[2021-01-29] MEDS: FLUoxetine 20mg capsule PO SCH (07:41)
[2021-01-29] MEDS: venlafaxine XR 75mg capsule (Q24H) PO SCH ×2 (07:41)
[2021-01-29] MEDS: heparin, porcine 5000 units/ml vial SQ SCH ×2 (07:46→19:46)
[2021-01-29] MEDS: amLODIPine 5mg tablet PO SCH (07:47)
[2021-01-29] MEDS: metoprolol tartrate 50mg tablet PO SCH ×2 (07:47→19:45)
[2021-01-29] MEDS: nicotine 21mg patch - 24 hr TD SCH (07:48)
[2021-01-29] MEDS: K and/or MAG REPLACEMENT MC SCH ×2 (08:00→20:00)
[2021-01-29] MEDS: albuterol 2.5 MG/3 ML nebule NEB SCH ×3 (08:12→19:36)
[2021-01-29] MEDS: insulin Lispro (HumaLOG) vial - multi-dose SQ SCH ×2 (08:45→13:17)
[2021-01-29 11:00] VITALS: BP 138/73
--- NOTE | 2021-01-29 15:55 | NUR ---
Patient off the floor for a procedure in [employer] med during 1500 vitals
--- NOTE | 2021-01-29 18:31 | NUR ---
Problems reprioritized. Patient report given, questions answered & plan of care reviewed with Nelli AYALA.
[2021-01-29] MEDS: traZODone 50mg tablet PO SCH (21:14)
[2021-01-29] MEDS: insulin glargine (Lantus) pen - multi-dose SQ SCH (21:35)
[2021-01-29 22:00] VITALS: BP 118/58
[2021-01-30 02:00] VITALS: BP 116/57
[2021-01-30] MEDS: VANCOMYCIN LEVEL IV SCH (03:02)
[2021-01-30 03:14] LABS: EOSINOPHILS # (AUTO) 0.3 X10'3 (0-0.9); HEMOGLOBIN 9.7 g/dl (12.0-16.0); MONOCYTES # (AUTO) 0.8 X10'3 (0-0.9); MONOCYTES % (AUTO) 8.9 % (2-12)
[2021-01-30 03:15] LABS: BASOPHILS % (AUTO) 0.4 % (0-1); EOSINOPHILS % (AUTO) 3.5 % (0-6); HEMATOCRIT 29.5 % (35.0-45.0); LYMPHOCYTES # (AUTO) 3.1 X10'3 (1.1-4.8); LYMPHOCYTES % (AUTO) 34.2 % (21-51); MEAN CORPUSCULAR HEMOGLOBIN 30.8 PG (27.0-31.0); MEAN CORPUSCULAR HGB CONC 32.8 g/dL (33.0-36.5); MEAN CORPUSCULAR VOLUME 93.9 FL (78-98); MEAN PLATELET VOLUME 7.2 FL (7.4-10.4); NEUTROPHILS # (AUTO) 4.8 X10'3 (1.8-7.7); PLATELET COUNT 358 X10'3 (140-440); RED BLOOD COUNT 3.14 X10'6 (4.20-5.60); WHITE BLOOD COUNT 9.1 X10'3 (4.5-11.0)
[2021-01-30 03:32] LABS: ALANINE AMINOTRANSFERASE 8 U/L (12-78); ALBUMIN 1.8 G/DL (3.4-5.0); ALBUMIN/GLOBULIN RATIO 0.4 (1.1-1.5); ALKALINE PHOSPHATASE 181 IU/L (46-116); ANION GAP 7 (8-16); ASPARTATE AMINO TRANSFERASE 16 U/L (10-37); BILIRUBIN,TOTAL 0.2 MG/DL (0.1-1.0); BLOOD UREA NITROGEN 26 MG/DL (7-18); BUN/CREATININE RATIO 5.9 (6.6-38.0); CALCIUM 8.4 MG/DL (8.5-10.1); CHLORIDE 100 MMOL/L (99-107); CREATININE 4.37 MG/DL (0.40-0.90); GLUCOSE 108 MG/DL (70-104); MAGNESIUM 2.3 MG/DL (1.5-2.4); POTASSIUM 4.3 MMOL/L (3.5-5.1); SODIUM 133 MMOL/L (135-145); TOTAL CARBON DIOXIDE 26.4 MMOL/L (24-32); TOTAL PROTEIN 6.9 G/DL (6.4-8.2); VANCOMYCIN,RANDOM 16.5 UG/ML; eGFR 11 ML/MIN
--- NOTE | 2021-01-30 06:22 | NUR ---
Problems reprioritized. Patient report given, questions answered & plan of care reviewed with Estefani AYALA .
[2021-01-30 07:00] VITALS: BP 143/75
[2021-01-30] MEDS: nicotine 21mg patch - 24 hr TD SCH ×3 (07:48→17:12)
[2021-01-30] MEDS: K and/or MAG REPLACEMENT MC SCH ×2 (08:00→20:00)
[2021-01-30] MEDS: budesonide 0.5mg/2ml UD nebule IH SCH ×2 (08:08→19:24)
[2021-01-30] MEDS: albuterol 2.5 MG/3 ML nebule NEB SCH (08:09)
[2021-01-30] MEDS: furosemide 40mg/4ml inj IV SCH ×2 (08:41→20:00)
[2021-01-30] MEDS: FLUoxetine 20mg capsule PO SCH (08:42)
[2021-01-30] MEDS: metoprolol tartrate 50mg tablet PO SCH ×2 (08:42→19:54)
[2021-01-30] MEDS: gabapentin 300mg capsule PO SCH (08:42)
[2021-01-30] MEDS: venlafaxine XR 75mg capsule (Q24H) PO SCH ×2 (08:43→08:46)
[2021-01-30] MEDS: calcitriol 0.25mcg capsule PO SCH (08:44)
[2021-01-30] MEDS: amLODIPine 5mg tablet PO SCH (08:44)
[2021-01-30] MEDS: OMEGA-3/DHA/EPA/FISH OIL 1 EACH CAPSULE.DR PO SCH (08:44)
[2021-01-30] MEDS: lactobacillus rhamnosus 10,000 MMU CELLS/CAPSULE PO SCH ×2 (08:44→19:32)
[2021-01-30] MEDS: heparin, porcine 5000 units/ml vial SQ SCH ×2 (08:45→19:31)
[2021-01-30] MEDS ORDERED: heparin 1,000unit/ml 10ml vial 10 ML IV ONE (09:10)
[2021-01-30] MEDS ORDERED: normal saline 1000ml 250 ML IV PRN (09:10)
[2021-01-30] MEDS ORDERED: EPOETIN ALFA-EPBX 20,000 UNIT/ML 1 ML MDV IV ONE (09:10)
[2021-01-30] MEDS: sevelamer carbonate 800mg tablet PO SCH ×3 (09:12→18:09)
[2021-01-30] MEDS ORDERED: heparin 1,000 units/ml 10ml inj HE ONE ×2 (09:15)
[2021-01-30] MEDS: insulin Lispro (HumaLOG) vial - multi-dose SQ SCH ×2 (09:17→14:54)
[2021-01-30] MEDS: CefTRIAXone 2gm/D5W 50ml BAG 50 ML IV SCH (09:26)
--- NOTE | 2021-01-30 09:49 | NUR ---
Initial: Pt admit for acute respiratory failure with hypoxia, PNA, and bilat PE, with h/o ESRD on dialysis. Currently on a renal diet and eating well with average 75% PO intake, receiving routine Phos binder. LBM 01/27, with PRN bowel care available. No nutrition intervention implemented at this time. Will continue to follow. Recommendations: 1) Continue renal diet 2) Monitor need for ONS/additional protein 3) Continue routine Phos binder 4) Bowel care PRN 5) Scaled weight this admit; subsequent scaled weights with dialysis Addendum: 01/30/21 at [address] Amended: Links added.
[2021-01-30 11:00] VITALS: BP 133/70
[2021-01-30] MEDS: ipratropium/albuterol 3ml nebule NEB SCH ×4 (11:23→23:27)
[2021-01-30 15:00] VITALS: BP 121/60
[2021-01-30] MEDS: methylPREDNISolone sod succ/PF 40mg inj. IV SCH ×2 (16:00→23:55)
[2021-01-30] MEDS: HYDROcodone/acetaminophen 10/325mg tab PO PRN ×2 (16:01→22:50)
[2021-01-30 18:00] VITALS: BP 146/61
--- NOTE | 2021-01-30 18:00 | NUR ---
Patient in room PCU 3019. I have received report from Estefani AYALA and had the opportunity to ask questions and assume patient care.
[2021-01-30] MEDS: traZODone 50mg tablet PO SCH (19:49)
--- NOTE | 2021-01-30 20:26 | NUR ---
PATIENT HAS NO IV ACCSESS,3 RN'S ATTEMPTED TO OBTAIN IV, RIGHT SIDE ONLY DUE TO DIALYSISI FISTULA ON LEFT ARM. LIANNE CALL MD IF rn procedure CANNOT OBTAIN IV ACCESS .KIERRA AYALA
[2021-01-30 22:00] VITALS: BP 107/53
[2021-01-30] MEDS: insulin glargine (Lantus) pen - multi-dose SQ SCH (23:00)
--- NOTE | 2021-01-30 23:33 | NUR ---
no IV access, MD Gong ordered 40 mg po prednisone x 1 now, reassess iv access in am, as patient is dialysis patient. Luz Maria AYALA
[2021-01-30] MEDS ORDERED: predniSONE 20 mg tablet PO ONE (23:35)
[2021-01-31] MEDS: VANCOMYCIN LEVEL IV SCH (03:00)
[2021-01-31] MEDS: ipratropium/albuterol 3ml nebule NEB SCH ×4 (03:16→15:30)
[2021-01-31 06:00] VITALS: BP 132/65
--- NOTE | 2021-01-31 06:35 | NUR ---
Patient in room PCU 3019. I have received report from JAMIE Corley and had the opportunity to ask questions and assume patient care.
--- NOTE | 2021-01-31 06:41 | NUR ---
Patient in room PCU 3019. I have received report from JORDY AYALA and had the opportunity to ask questions and assume patient care.
[2021-01-31 06:56] LABS: BASOPHILS # (AUTO) 0.1 X10'3 (0-0.2); BASOPHILS % (AUTO) 0.9 % (0-1); EOSINOPHILS % (AUTO) 0.2 % (0-6); HEMATOCRIT 34.2 % (35.0-45.0); HEMOGLOBIN 11.1 g/dl (12.0-16.0); LYMPHOCYTES # (AUTO) 0.9 X10'3 (1.1-4.8); LYMPHOCYTES % (AUTO) 11.3 % (21-51); MEAN CORPUSCULAR HEMOGLOBIN 30.9 PG (27.0-31.0); MEAN CORPUSCULAR HGB CONC 32.5 g/dL (33.0-36.5); MEAN CORPUSCULAR VOLUME 94.9 FL (78-98); MEAN PLATELET VOLUME 7.4 FL (7.4-10.4); MONOCYTES # (AUTO) 0.1 X10'3 (0-0.9); MONOCYTES % (AUTO) 1.3 % (2-12); NEUTROPHILS # (AUTO) 7.1 X10'3 (1.8-7.7); NEUTROPHILS % (AUTO) 86.3 % (42-75); PLATELET COUNT 421 X10'3 (140-440); RED CELL DISTRIBUTION WIDTH 16.4 % (11.5-14.5); WHITE BLOOD COUNT 8.2 X10'3 (4.5-11.0)
[2021-01-31 07:23] LABS: ALANINE AMINOTRANSFERASE 11 U/L (12-78); ALBUMIN 2.1 G/DL (3.4-5.0); ALBUMIN/GLOBULIN RATIO 0.3 (1.1-1.5); ALKALINE PHOSPHATASE 201 IU/L (46-116); ANION GAP 11 (8-16); ASPARTATE AMINO TRANSFERASE 19 U/L (10-37); BILIRUBIN,TOTAL 0.3 MG/DL (0.1-1.0); BLOOD UREA NITROGEN 15 MG/DL (7-18); BUN/CREATININE RATIO 4.7 (6.6-38.0); CALCIUM 8.9 MG/DL (8.5-10.1); CHLORIDE 98 MMOL/L (99-107); CREATININE 3.19 MG/DL (0.40-0.90); GLUCOSE 213 MG/DL (70-104); MAGNESIUM 2.2 MG/DL (1.5-2.4); POTASSIUM 4.9 MMOL/L (3.5-5.1); SODIUM 134 MMOL/L (135-145); TOTAL CARBON DIOXIDE 25.4 MMOL/L (24-32); TOTAL PROTEIN 8.2 G/DL (6.4-8.2); VANCOMYCIN,RANDOM 11.7 UG/ML; eGFR 15 ML/MIN
[2021-01-31] MEDS: budesonide 0.5mg/2ml UD nebule IH SCH (07:41)
[2021-01-31] MEDS: K and/or MAG REPLACEMENT MC SCH (08:00)
[2021-01-31] MEDS: nicotine 21mg patch - 24 hr TD SCH (08:08)
[2021-01-31] MEDS: sevelamer carbonate 800mg tablet PO SCH ×2 (08:12→13:00)
[2021-01-31] MEDS: metoprolol tartrate 50mg tablet PO SCH (08:12)
[2021-01-31] MEDS: FLUoxetine 20mg capsule PO SCH (08:14)
[2021-01-31] MEDS: calcitriol 0.25mcg capsule PO SCH (08:14)
[2021-01-31] MEDS: amLODIPine 5mg tablet PO SCH (08:15)
[2021-01-31] MEDS: gabapentin 300mg capsule PO SCH (08:15)
[2021-01-31] MEDS: OMEGA-3/DHA/EPA/FISH OIL 1 EACH CAPSULE.DR PO SCH (08:16)
[2021-01-31] MEDS: venlafaxine XR 75mg capsule (Q24H) PO SCH ×2 (08:18)
[2021-01-31] MEDS: heparin, porcine 5000 units/ml vial SQ SCH ×2 (08:21→08:25)
[2021-01-31] MEDS: lactobacillus rhamnosus 10,000 MMU CELLS/CAPSULE PO SCH (08:22)
--- NOTE | 2021-01-31 08:28 | NUR ---
Paged Dr. Chung re: medications: PAGER ID: [phone] MESSAGE: Elva Rowan [id number] pt has no IV, difficult to access, limited to r. arm d/t AV fistula on l. Can we change her ativan and lasix to PO? also, has iv rocephin ordered, is there an alternative? Mary [phone]
[2021-01-31] MEDS ORDERED: amox tr/potassium clavulanate 875/125mg TAB PO SCH (08:35)
[2021-01-31] MEDS ORDERED: LORazepam 0.5 MG tablet PO PRN (08:35)
[2021-01-31] MEDS ORDERED: predniSONE 20 mg tablet PO SCH (10:25)
[2021-01-31] MEDS: insulin Lispro (HumaLOG) vial - multi-dose SQ SCH ×2 (10:28→14:06)
[2021-01-31] MEDS: HYDROcodone/acetaminophen 10/325mg tab PO PRN (10:35)
--- NOTE | 2021-01-31 10:51 | NUR ---
O2 Sat at rest on room air 88 % If below 89%: Recovery O2 Sat at rest on 3 LPM: 98 % via nasal cannula No further documentation is necessary. If O2 Sat did not drop below 89% on room air,ambulate patient on room air. O2 Sat while ambulating on room air:___% Recovery O2 Sat while ambulating on ___LPM:___% No further documentation is necessary. If patient does not drop below 89% while ambulating, he/she does not qualify for home O2.
[2021-01-31] MEDS ORDERED: PRED20TA PO (10:54)
[2021-01-31] MEDS ORDERED: IPRA3AMP9 NEB (10:54)
[2021-01-31] MEDS ORDERED: AMOX-580 PO (10:54)
[2021-01-31 11:00] VITALS: BP 126/89
[2021-01-31] MEDS ORDERED: Lorazepam PO (17:09)
[2021-01-31] MEDS ORDERED: furosemide 40mg tablet PO SCH (20:00)
[2021-02-01] MEDS ORDERED: predniSONE 20 mg tablet PO SCH (08:00)
== END 2021-01-31 18:01 | disposition home or self-care (01) | DRG 133 ==
LOC: ER 22:28 → ED HOLD 01-26 01:55 → PCU 3S 01-26 15:43
PROVIDERS: ADMIT Internal Medicine; ATTEND Family Medicine
PROC: 5A1D70Z Performance of Urinary Filtration, Intermittent, Less than 6 Hours Per Day (ICD-10-PCS; principal; 2021-01-26)
PROC: 5A0935A Assistance with Respiratory Ventilation, Less than 24 Consecutive Hours, High Flow/Velocity Cannula (ICD-10-PCS; 2021-01-26)
PROC: 5A09357 Assistance with Respiratory Ventilation, Less than 24 Consecutive Hours, Continuous Positive Airway Pressure (ICD-10-PCS; 2021-01-26)
PROC: 5A09357 Assistance with Respiratory Ventilation, Less than 24 Consecutive Hours, Continuous Positive Airway Pressure (ICD-10-PCS; 2021-01-27)
PROC: 5A1D70Z Performance of Urinary Filtration, Intermittent, Less than 6 Hours Per Day (ICD-10-PCS; 2021-01-28)
PROC: CB121ZZ Planar Nuclear Medicine Imaging of Lungs and Bronchi using Technetium 99m (Tc-99m) (ICD-10-PCS; 2021-01-29)
PROC: 5A1D70Z Performance of Urinary Filtration, Intermittent, Less than 6 Hours Per Day (ICD-10-PCS; 2021-01-30)
DX: J96.01 Acute respiratory failure with hypoxia (principal); I13.2 Hypertensive heart and chronic kidney disease with heart failure and with stage 5 chronic kidney disease, or end stage renal disease; J18.9 Pneumonia, unspecified organism; N18.6 End stage renal disease; E11.22 Type 2 diabetes mellitus with diabetic chronic kidney disease; E11.40 Type 2 diabetes mellitus with diabetic neuropathy, unspecified; J44.0 Chronic obstructive pulmonary disease with (acute) lower respiratory infection; F41.9 Anxiety disorder, unspecified; F17.210 Nicotine dependence, cigarettes, uncomplicated; E78.00 Pure hypercholesterolemia, unspecified; M79.7 Fibromyalgia; G89.29 Other chronic pain; Z20.822 Contact with and (suspected) exposure to COVID-19; I50.9 Heart failure, unspecified; Z99.2 Dependence on renal dialysis; Z79.4 Long term (current) use of insulin; Z99.81 Dependence on supplemental oxygen; Z79.899 Other long term (current) drug therapy; Z87.01 Personal history of pneumonia (recurrent)
CPT/HCPCS: 36415; 36600; 71045; 78582; 80053; 80202; 82803; 82948; 83036; 83735; 83880; 84145; 84484; 85018; 85025; 85379; 87081; 87635; 90935; 93005; 94640; 94660; 94760; 97161; 97530; 99285; A9539; A9540; C9803; G0257; G0378; J0456; J0696; J1644; J1815; J1940; J2060; J2543; J3370; J7030; J7512; J7626; Q4081; U0003

== ENCOUNTER 2021-04-03 08:08 | Day surgery (SDC) | payer MEDICAID ==
[~2021-04-03] VITALS: Ht 167.6 cm; Wt 76.2 kg
[~2021-04-03 08:08] MED LIST changes: +AMOX-580 PO; +CALC0.5C8 PO; +FLUT1AER4 IH; -FOLI0.4T6 PO; -FOLI0.8T19 PO; +FURO40TA4 PO; +HYDR-3972 PO; +IPRA3AMP9 NEB; +Lorazepam PO; +METO100T14 PO; -METO100T7 PO; +NICO-687 TOP; +PRED20TA PO; +TIOT4MIS3 INH; +VENL75CA61 PO
[2021-04-03 08:36] VITALS: BP 135/66
[2021-04-03] MEDS ORDERED: normal saline 1000ml 1,000 ML IV PRN (08:55)
[2021-04-03] MEDS ORDERED: cefazolin/dext.iso 2gm/50ml 50 ML IV ONE (08:55)
[2021-04-03] MEDS ORDERED: IPRA3AMP9 IH (09:29)
[2021-04-03] MEDS ORDERED: HYDR-3972 PO (09:31)
[2021-04-03] MEDS ORDERED: FOLI1CAP8 PO (09:31)
[2021-04-03] MEDS ORDERED: METO100T14 PO (09:34)
[2021-04-03] MEDS ORDERED: LIDOcaine 1% (10mg/ml) 2ml vial ONE (13:12)
[2021-04-03] MEDS ORDERED: heparin 1,000unit/ml 10ml vial 10 ML ONE (13:12)
[2021-04-03] MEDS ORDERED: iohexol 300 MG/1 ML 50ml polymer ONE (14:02)
[2021-04-03 14:20] VITALS: BP 136/61
[2021-04-03 14:30] VITALS: BP 132/65
== END 2021-04-03 14:55 | disposition home or self-care (01) ==
LOC: SSTAY O 08:08
PROVIDERS: ATTEND Preventive Medicine Aerospace Medicine
DX: T82.49XA Other complication of vascular dialysis catheter, initial encounter (principal); N18.6 End stage renal disease; Z79.899 Other long term (current) drug therapy; Y83.8 Other surgical procedures as the cause of abnormal reaction of the patient, or of later complication, without mention of misadventure at the time of the procedure; Y92.89 Other specified places as the place of occurrence of the external cause
CPT/HCPCS: 36581; 77001; 82948; C1750; C1769; J1644; J3490; J7030; Q9967; A9270

== ENCOUNTER 2021-05-27 19:21 | Inpatient (IN) | payer MEDICAID, OTHER ==
[~2021-05-27] VITALS: Ht 167.6 cm; Wt 78.9 kg
[~2021-05-27 19:21] MED LIST changes: -AMOX-580 PO; -CALC0.5C8 PO; -FLUT1AER4 IH; +FOLI1CAP8 PO; -Lorazepam PO; -NICO-687 TOP; -PRED20TA PO; -TIOT4MIS3 INH; -VENL75CA61 PO
[2021-05-27 20:46] LABS: BASOPHILS # (AUTO) 0.1 X10'3 (0-0.2); BASOPHILS % (AUTO) 0.6 % (0-1); EOSINOPHILS % (AUTO) 0 % (0-6); HEMATOCRIT 35.3 % (35.0-45.0); HEMOGLOBIN 11.2 g/dl (12.0-16.0); LYMPHOCYTES # (AUTO) 0.6 X10'3 (1.1-4.8); LYMPHOCYTES % (AUTO) 6.7 % (21-51); MEAN CORPUSCULAR HGB CONC 31.8 g/dL (33.0-36.5); MEAN CORPUSCULAR VOLUME 94.6 FL (78-98); MEAN PLATELET VOLUME 7.4 FL (7.4-10.4); MONOCYTES # (AUTO) 0.6 X10'3 (0-0.9); MONOCYTES % (AUTO) 6.4 % (2-12); NEUTROPHILS # (AUTO) 7.6 X10'3 (1.8-7.7); NEUTROPHILS % (AUTO) 86.3 % (42-75); PLATELET COUNT 181 X10'3 (140-440); RED BLOOD COUNT 3.73 X10'6 (4.20-5.60); RED CELL DISTRIBUTION WIDTH 20.7 % (11.5-14.5); WHITE BLOOD COUNT 8.8 X10'3 (4.5-11.0)
[2021-05-27 21:06] LABS: ALANINE AMINOTRANSFERASE 31 U/L (12-78); ALBUMIN 2.9 G/DL (3.4-5.0); ALBUMIN/GLOBULIN RATIO 0.5 (1.1-1.5); ALKALINE PHOSPHATASE 171 IU/L (46-116); ANION GAP 9 (8-16); ASPARTATE AMINO TRANSFERASE 46 U/L (10-37); BILIRUBIN,TOTAL 0.7 MG/DL (0.1-1.0); BLOOD UREA NITROGEN 58 MG/DL (7-18); BUN/CREATININE RATIO 8.1 (6.6-38.0); CHLORIDE 95 MMOL/L (99-107); CREATININE 7.17 MG/DL (0.40-0.90); GLUCOSE 234 MG/DL (70-104); SODIUM 129 MMOL/L (135-145); TOTAL CARBON DIOXIDE 24.7 MMOL/L (24-32); TOTAL PROTEIN 9.2 G/DL (6.4-8.2); eGFR 6 ML/MIN
[2021-05-27 21:11] LABS: POTASSIUM 8.3 MMOL/L (3.5-5.1)
[2021-05-27] MEDS ORDERED: insulin regular, human 10 units/0.1 ml syringe IV ONE (21:20)
[2021-05-27] MEDS ORDERED: calcium chloride 100 MG/1 ML inj IV ONE (21:20)
[2021-05-27 21:21] LABS: ANISOCYTOSIS 3+; PLATELET ESTIMATE NORMAL
--- NOTE | 2021-05-27 21:21 | NUR ---
RT PAGED FOR ROOM 3 AT 21:20
[2021-05-27] MEDS ORDERED: albuterol 2.5 MG/3 ML nebule NEB ONE (21:25)
[2021-05-27] MEDS ORDERED: dextrose 50%-water 50ml dispensing syringe IV ONE (21:25)
[2021-05-27 21:33] LABS: C-REACTIVE PROTEIN 5.63 MG/DL (0.0-0.5)
[2021-05-27 21:39] LABS: APTT 27 SECONDS (22-32); D-DIMER 4.37 MG/L FEU (0-0.50)
[2021-05-27 21:51] LABS: ABG BASE EXCESS -11.1 mmol/L (-2.0-2.0); ABG HCO3 17.3 mmol/L (22.0-26.0); ABG OXYGEN SATURATION 84.9 % (94-97); ABG PCO2 (T) 49.3 mmHg (32.0-45.0); ABG PO2 (T) 63.2 mmHg (75.0-100.0); ALLEN'S TEST POSITIVE; FCOHb 0.9 % (0.0-3.9); FMetHb 0.3 % (0.0-1.5); FO2Hb 83.9 % (94-97); TOTAL HEMOGLOBIN 11.9 G/dl (12.0-16.0)
[2021-05-27] MEDS ORDERED: dexamethasone sod phosphate 10mg/ml inj IV STA (21:54)
[2021-05-27] MEDS ORDERED: piperacillin/tazo 3.375gm/50ml 50 ML IV SCH (22:10)
[2021-05-27] MEDS ORDERED: heparin 1,000unit/ml 10ml vial 10 ML IV ONE (22:25)
[2021-05-27] MEDS ORDERED: normal saline 1000ml 250 ML IV PRN (22:25)
[2021-05-27] MEDS ORDERED: EPOETIN ALFA-EPBX 20,000 UNIT/ML 1 ML MDV IV ONE (22:25)
[2021-05-27] MEDS ORDERED: heparin 1,000 units/ml 10ml inj HE ONE ×2 (22:30)
[2021-05-27 22:36] LABS: URINE AMPHETAMINE SCREEN NEGATIVE (Neg); URINE BARBITUATE SCREEN NEGATIVE (Neg); URINE BENZODIAZEPINES SCREEN NEGATIVE (Neg); URINE CANNABINOID SCREEN NEGATIVE (Neg); URINE COCAINE SCREEN NEGATIVE (Neg); URINE METHADONE SCREEN NEGATIVE (Neg); URINE OPIATE SCREEN POSITIVE (Neg); URINE PHENCYCLIDINE SCREEN NEGATIVE (Neg)
[2021-05-27] MEDS ORDERED: PATIROMER CALCIUM SORBITEX 8.4 GM POWD.PACK PO SCH (22:37)
[2021-05-27] MEDS ORDERED: piperacillin/tazo 3.375gm/50ml 50 ML IV ONE (22:38)
[2021-05-27] MEDS ORDERED: vancomycin/NS 1 GM ADD-VANTAGE 250 ML IV ONE (22:40)
[2021-05-27] MEDS ORDERED: acetaminophen 325mg tablet PO PRN (23:40)
[2021-05-27] MEDS ORDERED: ondansetron/PF 4mg/2ml inj IV PRN (23:40)
[2021-05-27] MEDS ORDERED: magnesium hydroxide 30ml (MOM) UD suspension PO PRN (23:40)
--- NOTE | 2021-05-27 23:49 | NUR ---
Received report from JAMIE Painting from the ED. Pt got to room at approximately 23:30. Pt is obtunded but will arouse to sternal rub. Vitals are stable. Hemodialysis is being initiated. BiPAP on. Will continue to assess and intervene as appropriate.
[2021-05-28] VITALS (18 sets, daily range): BP systolic 101–155; BP diastolic 57–69
[2021-05-28] MEDS: dexamethasone 4mg/ml inj IV SCH ×4 (02:20→21:43)
[2021-05-28 02:45] LABS: BASOPHILS % (AUTO) 0.3 % (0-1); EOSINOPHILS % (AUTO) 0 % (0-6); HEMATOCRIT 31.2 % (35.0-45.0); HEMOGLOBIN 10.1 g/dl (12.0-16.0); LYMPHOCYTES # (AUTO) 0.4 X10'3 (1.1-4.8); LYMPHOCYTES % (AUTO) 6.6 % (21-51); MEAN CORPUSCULAR HEMOGLOBIN 30.1 PG (27.0-31.0); MEAN CORPUSCULAR HGB CONC 32.3 g/dL (33.0-36.5); MEAN CORPUSCULAR VOLUME 93.1 FL (78-98); MONOCYTES # (AUTO) 0.2 X10'3 (0-0.9); MONOCYTES % (AUTO) 3.1 % (2-12); NEUTROPHILS # (AUTO) 5.9 X10'3 (1.8-7.7); PLATELET COUNT 172 X10'3 (140-440); RED BLOOD COUNT 3.35 X10'6 (4.20-5.60); RED CELL DISTRIBUTION WIDTH 20.3 % (11.5-14.5); WHITE BLOOD COUNT 6.6 X10'3 (4.5-11.0)
[2021-05-28 03:18] LABS: ANISOCYTOSIS 3+; PLATELET ESTIMATE NORMAL
[2021-05-28 03:19] LABS: POLYCHROMASIA FEW
[2021-05-28 03:54] LABS: ALANINE AMINOTRANSFERASE 33 U/L (12-78); ALBUMIN 2.9 G/DL (3.4-5.0); ALBUMIN/GLOBULIN RATIO 0.5 (1.1-1.5); ALKALINE PHOSPHATASE 157 IU/L (46-116); ANION GAP 9 (8-16); ASPARTATE AMINO TRANSFERASE 46 U/L (10-37); BILIRUBIN,TOTAL 0.8 MG/DL (0.1-1.0); BLOOD UREA NITROGEN 23 MG/DL (7-18); BUN/CREATININE RATIO 7.4 (6.6-38.0); CALCIUM 9.2 MG/DL (8.5-10.1); CHLORIDE 99 MMOL/L (99-107); CREATININE 3.09 MG/DL (0.40-0.90); GLUCOSE 142 MG/DL (70-104); MAGNESIUM 2.2 MG/DL (1.5-2.4); PHOSPHORUS 3.9 MG/DL (2.3-4.5); POTASSIUM 4.4 MMOL/L (3.5-5.1); SODIUM 135 MMOL/L (135-145); TOTAL CARBON DIOXIDE 26.8 MMOL/L (24-32); TOTAL PROTEIN 8.4 G/DL (6.4-8.2); eGFR 16 ML/MIN
[2021-05-28] MEDS: acetaminophen 325mg tablet PO PRN ×2 (03:58→17:33)
--- NOTE | 2021-05-28 06:26 | NUR ---
Pt received hemodialysis this shift. LOC has improved post HD treatment. Pt is now on RA. Vitals have been stable. Labs have improved this shift. Will continue to assess and intervene as appropriate.
[2021-05-28] MEDS ORDERED: piperacillin/tazo 3.375gm/50ml 50 ML IV SCH (10:45)
[2021-05-28] MEDS ORDERED: vancomycin/NS 1 GM ADD-VANTAGE 250 ML X 1 DOSE IV ONE (11:09)
[2021-05-28] MEDS ORDERED: vancomycin/NS 1 GM ADD-VANTAGE 250 ML X 1 DOSE IV PRN (11:10)
[2021-05-28] MEDS ORDERED: glucagon, human recombinant 1mg kit SUBCUT PRN (13:40)
[2021-05-28] MEDS ORDERED: dextrose 50%-water 50ml dispensing syringe IV PRN ×2 (13:40)
[2021-05-28] MEDS ORDERED: dextrose ORAL solution 15 GM/59 ML bottle PO PRN ×2 (13:40)
--- NOTE | 2021-05-28 14:23 | NUR ---
Malnutrition consult: Pt unsure of wt loss though with decreased appetite per malnutrition risk screen with RN. Current scaled wt is stable with recent wt hx in EMR though wt likely to fluctuate d/t changes in fluid status as pt with ESRD on dialysis. Pending documentation of first meal on CHO controlled diet. Pt with no documented significant decrease in muscle strength or edema and per MD note appears well developed well nourished. Pt currently lacks a minimum of two criteria for malnutrition. Noted at previous admit pt requested no fish, d/w dietary to resume food preferences this admit. Will continue to follow and further monitor qualifying criteria for malnutrition. Addendum: 05/28/21 at [address] Amended: Links added.
[2021-05-28] MEDS: insulin Lispro (HumaLOG) vial - multi-dose SQ SCH (16:06)
[2021-05-28] MEDS ORDERED: tPA-cathflo 2 MG/2 ml IV flush IVF ONE (16:15)
--- NOTE | 2021-05-28 16:45 | NUR ---
Report given to Chayito SALES MANAGEMENT TRAINEE. Transferred patient in stable condition with tele #[phone] via wheelchair. Face mask in place for protection.
--- NOTE | 2021-05-28 17:15 | NUR ---
received patient from ICU via wheelchair, made comfortable, not in any kind of distress, needs attended. will continue to monitor.
[2021-05-28] MEDS ORDERED: INSU100V9 SQ (17:48)
[2021-05-28] MEDS ORDERED: SEVE800T8 PO (17:48)
[2021-05-28] MEDS ORDERED: INSU100V40 SQ (17:50)
[2021-05-28] MEDS: insulin glargine (Lantus) pen - multi-dose SQ SCH (21:00)
[2021-05-28] MEDS: piperacillin/tazo 3.375gm/50ml 50 ML IV SCH (21:43)
[2021-05-29 02:00] VITALS: BP 136/69
[2021-05-29] MEDS ORDERED: zolpidem 5mg tablet PO ONE (02:10)
[2021-05-29] MEDS: acetaminophen 325mg tablet PO PRN (02:29)
[2021-05-29] MEDS: dexamethasone 4mg/ml inj IV SCH ×4 (02:44→19:13)
[2021-05-29] MEDS: VANCOMYCIN LEVEL IV SCH (03:00)
--- NOTE | 2021-05-29 03:57 | NUR ---
patient requesting ambien for sleep. Medication is on med rec. On-call notified order to add ambien 10mg at HS to JUL.
[2021-05-29 06:00] VITALS: BP 161/51
--- NOTE | 2021-05-29 07:00 | NUR ---
Patient in room ORTHO 4016. I have received report from Deepa and had the opportunity to ask questions and assume patient care.
[2021-05-29 07:53] LABS: BASOPHILS % (AUTO) 0.1 % (0-1); EOSINOPHILS % (AUTO) 0 % (0-6); HEMATOCRIT 34.1 % (35.0-45.0); LYMPHOCYTES # (AUTO) 0.9 X10'3 (1.1-4.8); LYMPHOCYTES % (AUTO) 9.8 % (21-51); MEAN CORPUSCULAR HEMOGLOBIN 30.1 PG (27.0-31.0); MEAN CORPUSCULAR HGB CONC 32.3 g/dL (33.0-36.5); MEAN CORPUSCULAR VOLUME 93.3 FL (78-98); MEAN PLATELET VOLUME 7.7 FL (7.4-10.4); MONOCYTES # (AUTO) 0.3 X10'3 (0-0.9); MONOCYTES % (AUTO) 3.8 % (2-12); NEUTROPHILS # (AUTO) 7.6 X10'3 (1.8-7.7); NEUTROPHILS % (AUTO) 86.3 % (42-75); PLATELET COUNT 208 X10'3 (140-440); RED BLOOD COUNT 3.65 X10'6 (4.20-5.60); RED CELL DISTRIBUTION WIDTH 20.6 % (11.5-14.5); WHITE BLOOD COUNT 8.7 X10'3 (4.5-11.0)
[2021-05-29] MEDS: piperacillin/tazo 3.375gm/50ml 50 ML IV SCH ×2 (08:16→19:13)
[2021-05-29 08:19] LABS: ALANINE AMINOTRANSFERASE 29 U/L (12-78); ALBUMIN 2.6 G/DL (3.4-5.0); ALBUMIN/GLOBULIN RATIO 0.5 (1.1-1.5); ALKALINE PHOSPHATASE 125 IU/L (46-116); ANION GAP 13 (8-16); ASPARTATE AMINO TRANSFERASE 35 U/L (10-37); BILIRUBIN,TOTAL 0.6 MG/DL (0.1-1.0); BLOOD UREA NITROGEN 62 MG/DL (7-18); BUN/CREATININE RATIO 11.2 (6.6-38.0); CALCIUM 8.6 MG/DL (8.5-10.1); CHLORIDE 98 MMOL/L (99-107); CREATININE 5.54 MG/DL (0.40-0.90); GLUCOSE 217 MG/DL (70-104); MAGNESIUM 2.6 MG/DL (1.5-2.4); PHOSPHORUS 8.6 MG/DL (2.3-4.5); SODIUM 135 MMOL/L (135-145); TOTAL CARBON DIOXIDE 24.4 MMOL/L (24-32); TOTAL PROTEIN 7.8 G/DL (6.4-8.2); eGFR 8 ML/MIN
[2021-05-29 08:24] LABS: POTASSIUM 6.1 MMOL/L (3.5-5.1)
[2021-05-29] MEDS ORDERED: HYDR-3686 PO (08:45)
[2021-05-29] MEDS ORDERED: TIOT4MIS3 PO (08:45)
[2021-05-29] MEDS ORDERED: VENL75TA90 PO (08:45)
[2021-05-29] MEDS ORDERED: FLUT1DIS20 INH (08:45)
[2021-05-29 08:57] LABS: HEMOGLOBIN A1C 6.9 % (4.5-6.2)
--- NOTE | 2021-05-29 09:46 | NUR ---
Dr. Jaimes made aware via 27 b[employer] that patient has a potassium of 6.1 called in this morning. Addendum: 05/29/21 at 1315 by Monica Vasquez RN Spoke with Dr. Jaimes regarding patient's potassium of 6.1. He stated patient will be dialyzed today no need to given anything now. Shahida dialysis nurse contacted with regards to patient's dialysis and told me that patient will be dialyzed on 05/30/2021. Dr. jaimes made aware via 27 [employer]. Waiting for recommendation.
[2021-05-29 10:17] LABS: HBSAG SCREEN Negative (Negative)
[2021-05-29 11:00] VITALS: BP 136/69
--- NOTE | 2021-05-29 13:26 | NUR ---
Patient ate a late b/fast around 1100. She consumed 12g of carbs and refused insulin.
[2021-05-29] MEDS: insulin Lispro (HumaLOG) vial - multi-dose SQ SCH ×3 (13:44→21:40)
[2021-05-29] MEDS: HYDROcodone/acetaminophen 5mg/325mg tablet PO PRN (16:57)
[2021-05-29 17:00] VITALS: BP 128/74
[2021-05-29] MEDS ORDERED: non-formulary drug (Zolpidem Tartrate (Ambien) 1 TAB) PO SCH (17:40)
[2021-05-29] MEDS ORDERED: sevelamer carbonate 800mg tablet PO PRN (17:40)
[2021-05-29 18:00] VITALS: BP 142/73
[2021-05-29] MEDS: sevelamer carbonate 800mg tablet PO SCH (18:00)
--- NOTE | 2021-05-29 19:10 | NUR ---
Problems reprioritized. Patient report given, questions answered & plan of care reviewed with Ángel.
[2021-05-29] MEDS ORDERED: albuterol 2.5 MG/3 ML nebule CONTNEB STA (19:11)
[2021-05-29] MEDS: lactobacillus rhamnosus 10,000 MMU CELLS/CAPSULE PO SCH (19:13)
[2021-05-29] MEDS: metoprolol tartrate 50mg tablet PO SCH (19:14)
[2021-05-29] MEDS ORDERED: furosemide 40mg/4ml inj IV ONE (19:15)
[2021-05-29] MEDS ORDERED: sodium polystyrene sulfonate 15gm/60ml oral suspension PO ONE (19:15)
--- NOTE | 2021-05-29 19:40 | NUR ---
Dr. Garcia requests notificiation of any abnormal lab having to do with renal failure. was not notified of patient's 6.1 level, day RN Lyndsay notified Dr. Jc twice with no further orders. notified RT of stat order. Robb is in ICU and will come as soon as he can get away. lasix and insulin given per Dr. Garcia orders. no D50 ordered due to patient's blood sugar. awaiting kayexolate from RX.
[2021-05-29] MEDS: zolpidem 5mg tablet PO PRN (21:35)
[2021-05-29] MEDS: gabapentin 400mg capsule PO SCH (21:35)
[2021-05-29] MEDS: traZODone 50mg tablet PO SCH (21:35)
[2021-05-29] MEDS: insulin glargine (Lantus) pen - multi-dose SQ SCH (21:40)
[2021-05-29 22:00] VITALS: BP 153/69
[2021-05-29] MEDS: budesonide 0.5mg/2ml UD nebule IH SCH (22:42)
[2021-05-29] MEDS: ipratropium/albuterol 3ml nebule NEB SCH (22:42)
--- NOTE | 2021-05-29 23:31 | NUR ---
pt anxious about taking short acting and long acting insulin. encouraged pt that her sugar is very high after kayexolate and decadron. pt consented - will recheck her at midnight.
[2021-05-30] MEDS: dexamethasone 4mg/ml inj IV SCH ×3 (02:05→19:35)
[2021-05-30 06:00] VITALS: BP 146/72
--- NOTE | 2021-05-30 06:00 | NUR ---
Patient in room ORTHO 4016. I have received report from night nurse and had the opportunity to ask questions and assume patient care.
[2021-05-30] MEDS: VANCOMYCIN LEVEL IV SCH (07:30)
[2021-05-30] MEDS: venlafaxine XR 75mg capsule (Q24H) PO SCH (07:44)
[2021-05-30] MEDS: metoprolol tartrate 50mg tablet PO SCH ×2 (07:44→20:00)
[2021-05-30] MEDS: FLUoxetine 20mg capsule PO SCH (07:45)
[2021-05-30] MEDS: folic acid/vitamin B complex w/vitamin C 0.8mg tablet PO SCH (07:45)
[2021-05-30] MEDS: OMEGA-3/DHA/EPA/FISH OIL 1 EACH CAPSULE.DR PO SCH (07:46)
[2021-05-30] MEDS: budesonide 0.5mg/2ml UD nebule IH SCH ×3 (07:50→21:21)
[2021-05-30] MEDS: ipratropium/albuterol 3ml nebule NEB SCH ×3 (07:50→17:00)
[2021-05-30] MEDS: piperacillin/tazo 3.375gm/50ml 50 ML IV SCH (07:52)
[2021-05-30] MEDS ORDERED: albumin (human) 25% 100ml IV 100 ML IV PRN (08:00)
[2021-05-30] MEDS ORDERED: non-formulary drug (Venlafaxine HCl (Effexor Xr) 1 CAP) PO SCH (08:00)
[2021-05-30] MEDS ORDERED: heparin 1,000 units/ml 10ml inj IV ONE (08:00)
[2021-05-30] MEDS ORDERED: non-formulary drug (Tiotropium Br/Olodaterol HCl (Stiolto Respimat Inhal Spray) 2 PUFFS) PO SCH (08:00)
--- NOTE | 2021-05-30 08:30 | NUR ---
dialysis at bedside, pt receiving dialysis without issues
[2021-05-30 08:41] LABS: BASOPHILS % (AUTO) 0.1 % (0-1); EOSINOPHILS % (AUTO) 0 % (0-6); HEMATOCRIT 31.3 % (35.0-45.0); HEMOGLOBIN 10.2 g/dl (12.0-16.0); LYMPHOCYTES # (AUTO) 0.8 X10'3 (1.1-4.8); MEAN CORPUSCULAR VOLUME 92.9 FL (78-98); MONOCYTES # (AUTO) 0.2 X10'3 (0-0.9); RED BLOOD COUNT 3.37 X10'6 (4.20-5.60)
[2021-05-30 08:43] LABS: LYMPHOCYTES % (AUTO) 11.7 % (21-51); MEAN CORPUSCULAR HEMOGLOBIN 30.3 PG (27.0-31.0); MEAN CORPUSCULAR HGB CONC 32.6 g/dL (33.0-36.5); MEAN PLATELET VOLUME 7.3 FL (7.4-10.4); MONOCYTES % (AUTO) 2.9 % (2-12); NEUTROPHILS # (AUTO) 5.7 X10'3 (1.8-7.7); NEUTROPHILS % (AUTO) 85.3 % (42-75); PLATELET COUNT 216 X10'3 (140-440); RED CELL DISTRIBUTION WIDTH 20.6 % (11.5-14.5); WHITE BLOOD COUNT 6.7 X10'3 (4.5-11.0)
[2021-05-30 08:48] LABS: ALANINE AMINOTRANSFERASE 25 U/L (12-78); ALBUMIN 2.5 G/DL (3.4-5.0); ALBUMIN/GLOBULIN RATIO 0.5 (1.1-1.5); ALKALINE PHOSPHATASE 101 IU/L (46-116); ANION GAP 15 (8-16); ASPARTATE AMINO TRANSFERASE 26 U/L (10-37); BILIRUBIN,TOTAL 0.5 MG/DL (0.1-1.0); BLOOD UREA NITROGEN 84 MG/DL (7-18); BUN/CREATININE RATIO 11.9 (6.6-38.0); CALCIUM 7.9 MG/DL (8.5-10.1); CHLORIDE 100 MMOL/L (99-107); CREATININE 7.03 MG/DL (0.40-0.90); GLUCOSE 199 MG/DL (70-104); MAGNESIUM 2.6 MG/DL (1.5-2.4); POTASSIUM 5.3 MMOL/L (3.5-5.1); SODIUM 137 MMOL/L (135-145); TOTAL CARBON DIOXIDE 21.6 MMOL/L (24-32); TOTAL PROTEIN 7.2 G/DL (6.4-8.2); eGFR 6 ML/MIN
[2021-05-30 08:49] LABS: PHOSPHORUS 10.8 MG/DL (2.3-4.5)
[2021-05-30] MEDS: lactobacillus rhamnosus 10,000 MMU CELLS/CAPSULE PO SCH ×2 (08:53→19:35)
[2021-05-30] MEDS: sevelamer carbonate 800mg tablet PO SCH ×3 (08:54→18:29)
[2021-05-30] MEDS: HYDROcodone/acetaminophen 5mg/325mg tablet PO PRN ×3 (08:59→19:51)
[2021-05-30] MEDS: ALBUTEROL INHALER 1 PUFF/90 MCG INHALER IH SCH ×4 (09:00→21:22)
[2021-05-30 09:23] LABS: HYPOCHROMASIA 1+; PLATELET ESTIMATE NORMAL; POLYCHROMASIA 1+
[2021-05-30 09:24] LABS: ANISOCYTOSIS 3+; TEAR DROP CELLS FEW
[2021-05-30] MEDS: insulin Lispro (HumaLOG) vial - multi-dose SQ SCH ×3 (09:57→18:49)
[2021-05-30 10:00] VITALS: BP 137/76
--- NOTE | 2021-05-30 11:30 | NUR ---
dialysis finishing, 2000 liters removed
--- NOTE | 2021-05-30 13:45 | NUR ---
interventional radiology at bedside, decision made to exchange patients catheter later today. pt is agreeable
[2021-05-30] MEDS ORDERED: heparin 1,000unit/ml 10ml vial 10 ML ONE (15:11)
[2021-05-30] MEDS: heparin, porcine 5000 units/ml vial SQ SCH ×2 (16:53→22:57)
[2021-05-30 18:00] VITALS: BP 148/66
--- NOTE | 2021-05-30 18:21 | NUR ---
Patient in room ORTHO 4016. I have received report from JAMIE Pratt and had the opportunity to ask questions and assume patient care.
[2021-05-30] MEDS: gabapentin 400mg capsule PO SCH (19:35)
[2021-05-30] MEDS: insulin glargine (Lantus) pen - multi-dose SQ SCH (21:00)
[2021-05-30] MEDS: traZODone 50mg tablet PO SCH (21:19)
[2021-05-30 22:00] VITALS: BP 152/70
[2021-05-30] MEDS: zolpidem 5mg tablet PO PRN (22:58)
[2021-05-31] MEDS: HYDROcodone/acetaminophen 5mg/325mg tablet PO PRN ×2 (00:06→14:09)
[2021-05-31] MEDS: ALBUTEROL INHALER 1 PUFF/90 MCG INHALER IH SCH ×3 (02:18→14:20)
[2021-05-31] MEDS: VANCOMYCIN LEVEL IV SCH (03:00)
[2021-05-31 06:00] VITALS: BP 173/78
--- NOTE | 2021-05-31 06:27 | NUR ---
Problems reprioritized. Patient report given, questions answered & plan of care reviewed with JAMIE Corley.
[2021-05-31 08:00] VITALS: BP_SYST 173
[2021-05-31] MEDS: metoprolol tartrate 50mg tablet PO SCH (08:00)
[2021-05-31] MEDS: venlafaxine XR 75mg capsule (Q24H) PO SCH (08:00)
[2021-05-31] MEDS: heparin, porcine 5000 units/ml vial SQ SCH (08:00)
[2021-05-31] MEDS: lactobacillus rhamnosus 10,000 MMU CELLS/CAPSULE PO SCH (08:00)
[2021-05-31] MEDS: FLUoxetine 20mg capsule PO SCH (08:00)
[2021-05-31] MEDS: dexamethasone 4mg/ml inj IV SCH (08:00)
[2021-05-31] MEDS: OMEGA-3/DHA/EPA/FISH OIL 1 EACH CAPSULE.DR PO SCH (08:00)
[2021-05-31] MEDS: sevelamer carbonate 800mg tablet PO SCH ×2 (08:00→13:00)
[2021-05-31] MEDS: folic acid/vitamin B complex w/vitamin C 0.8mg tablet PO SCH (08:00)
[2021-05-31 09:10] LABS: BASOPHILS % (AUTO) 0.1 % (0-1); EOSINOPHILS % (AUTO) 0 % (0-6); HEMATOCRIT 35.8 % (35.0-45.0); HEMOGLOBIN 11.6 g/dl (12.0-16.0); LYMPHOCYTES # (AUTO) 1.2 X10'3 (1.1-4.8); LYMPHOCYTES % (AUTO) 15.4 % (21-51); MEAN CORPUSCULAR HEMOGLOBIN 30.5 PG (27.0-31.0); MEAN CORPUSCULAR HGB CONC 32.3 g/dL (33.0-36.5); MEAN CORPUSCULAR VOLUME 94.3 FL (78-98); MEAN PLATELET VOLUME 6.9 FL (7.4-10.4); MONOCYTES # (AUTO) 0.6 X10'3 (0-0.9); MONOCYTES % (AUTO) 7.8 % (2-12); NEUTROPHILS % (AUTO) 76.7 % (42-75); PLATELET COUNT 277 X10'3 (140-440); RED BLOOD COUNT 3.79 X10'6 (4.20-5.60); RED CELL DISTRIBUTION WIDTH 20.8 % (11.5-14.5); WHITE BLOOD COUNT 7.8 X10'3 (4.5-11.0)
[2021-05-31 09:43] LABS: ALANINE AMINOTRANSFERASE 38 U/L (12-78); ALBUMIN 2.9 G/DL (3.4-5.0); ALBUMIN/GLOBULIN RATIO 0.6 (1.1-1.5); ALKALINE PHOSPHATASE 115 IU/L (46-116); ANION GAP 17 (8-16); ASPARTATE AMINO TRANSFERASE 34 U/L (10-37); BILIRUBIN,TOTAL 0.5 MG/DL (0.1-1.0); BLOOD UREA NITROGEN 56 MG/DL (7-18); BUN/CREATININE RATIO 10.9 (6.6-38.0); CALCIUM 8.5 MG/DL (8.5-10.1); CHLORIDE 96 MMOL/L (99-107); CREATININE 5.16 MG/DL (0.40-0.90); GLUCOSE 211 MG/DL (70-104); MAGNESIUM 2.4 MG/DL (1.5-2.4); PHOSPHORUS 6.4 MG/DL (2.3-4.5); POTASSIUM 4.5 MMOL/L (3.5-5.1); SODIUM 138 MMOL/L (135-145); TOTAL CARBON DIOXIDE 25.4 MMOL/L (24-32); VANCOMYCIN,RANDOM 15.8 UG/ML; eGFR 9 ML/MIN
[2021-05-31] MEDS: insulin Lispro (HumaLOG) vial - multi-dose SQ SCH ×2 (09:59→14:55)
--- NOTE | 2021-05-31 13:52 | NUR ---
DM consult: Pt with T2DM, well controlled with A1c 6.9%, DM education not warranted at this time. Pt admit for hyperkalemia (currently WNL), metabolic encephalopathy, metabolic acidosis with respiratory acidosis, and COVID PNA. Pt with sepsis per MD note. Currently on a CHO controlled diet with fluctuating PO intake, overall averaging 52% PO intake since admit not fully meeting estimated nutrient needs. Recommend Nepro BID to assist with meeting estimated nutrient needs, pending physician approval in EMR. Noted Phos is elevated at 6.4 mg/dL though down from 10.8 mg/dL 05/30. Pt on routine Phos binder and received dialysis 05/30 per MD note. LBM 05/30. Will continue to follow closely and monitor need for further nutrition intervention. Recommendations: 1) Continue CHO controlled diet; monitor need for renal diet 2) Nepro BIDBD, pending physician approval in EMR 3) Bowel care PRN 4) Daily scaled weights per EMR 5) Routine phos binder per MD Addendum: 05/31/21 at [address] Amended: Links added.
--- NOTE | 2021-05-31 14:46 | NUR ---
Noon Blood glucose is taking a long time to register. It was 279 I will cover for that and her CHO of 45 @ a level 4
[2021-05-31] MEDS ORDERED: NUT.TX.IMP.RENAL FXN,LAC-REDUC (Nepro) 237 ML VANILLA PO SCH (17:30)
--- NOTE | 2021-05-31 18:11 | NUR ---
Iv removed, discharge packet went over and all patient questions answered. Gathered personal belonging clothes purse and slippers and wheeled down for p/U.
[2021-05-31] MEDS ORDERED: vancomycin/NS 1 GM ADD-VANTAGE 250 ML X 1 DOSE IV PRN ×2 (18:35)
[2021-05-31] MEDS ORDERED: gabapentin 300mg capsule PO SCH (21:00)
== END 2021-05-31 16:35 | disposition home or self-care (01) | DRG 721 ==
LOC: ER 19:21 → CICU 2S 22:07 → UNDOADMIN 22:07 → CICU 2S 23:44 → MERGE 23:44 → ORTHO 4S 05-28 17:15
PROVIDERS: ADMIT Internal Medicine; ATTEND Internal Medicine
PROC: 5A09357 Assistance with Respiratory Ventilation, Less than 24 Consecutive Hours, Continuous Positive Airway Pressure (ICD-10-PCS; 2021-05-28)
PROC: 5A1D70Z Performance of Urinary Filtration, Intermittent, Less than 6 Hours Per Day (ICD-10-PCS; 2021-05-28)
PROC: 0JPV3XZ Removal of Tunneled Vascular Access Device from Upper Extremity Subcutaneous Tissue and Fascia, Percutaneous Approach (ICD-10-PCS; principal; 2021-05-30)
PROC: 0JH63XZ Insertion of Tunneled Vascular Access Device into Chest Subcutaneous Tissue and Fascia, Percutaneous Approach (ICD-10-PCS; 2021-05-30)
PROC: 02H633Z Insertion of Infusion Device into Right Atrium, Percutaneous Approach (ICD-10-PCS; 2021-05-30)
PROC: B5181ZA Fluoroscopy of Superior Vena Cava using Low Osmolar Contrast, Guidance (ICD-10-PCS; 2021-05-30)
PROC: 5A1D70Z Performance of Urinary Filtration, Intermittent, Less than 6 Hours Per Day (ICD-10-PCS; 2021-05-30)
DX: T80.212A Local infection due to central venous catheter, initial encounter (principal); A41.81 Sepsis due to Enterococcus; J12.82 Pneumonia due to coronavirus disease 2019; J96.21 Acute and chronic respiratory failure with hypoxia; U07.1 COVID-19; G93.41 Metabolic encephalopathy; N17.9 Acute kidney failure, unspecified; I12.0 Hypertensive chronic kidney disease with stage 5 chronic kidney disease or end stage renal disease; E87.4 Mixed disorder of acid-base balance; E11.22 Type 2 diabetes mellitus with diabetic chronic kidney disease; E11.42 Type 2 diabetes mellitus with diabetic polyneuropathy; E78.5 Hyperlipidemia, unspecified; E87.5 Hyperkalemia; I08.0 Rheumatic disorders of both mitral and aortic valves; Y83.8 Other surgical procedures as the cause of abnormal reaction of the patient, or of later complication, without mention of misadventure at the time of the procedure; F32.A Depression, unspecified; F41.9 Anxiety disorder, unspecified; J44.9 Chronic obstructive pulmonary disease, unspecified; M79.7 Fibromyalgia; N18.6 End stage renal disease; Z87.01 Personal history of pneumonia (recurrent); Z87.891 Personal history of nicotine dependence; Z99.2 Dependence on renal dialysis; Z99.81 Dependence on supplemental oxygen; Z79.899 Other long term (current) drug therapy; Z79.4 Long term (current) use of insulin; Y92.89 Other specified places as the place of occurrence of the external cause
CPT/HCPCS: 36415; 36581; 36600; 70450; 71045; 77001; 80053; 80202; 80305; 82803; 82948; 83036; 83605; 83735; 83880; 84100; 84132; 84484; 85008; 85018; 85025; 85379; 85610; 85730; 86140; 87040; 87077; 87081; 87186; 87340; 87635; 90935; 93005; 93306; 94640; 94660; 94760; 99285; A9270; C1750; C1769; C9803; G0257; G0378; J1100; J1644; J1815; J1940; J2543; J2997; J3370; J3490